=== PATIENT | male | born 1935 | race Asian ===

== ENCOUNTER 2017-05-14 11:21 | Inpatient (IN) | payer MEDICARE ==
[~2017-05-14] VITALS: Ht 160 cm; Wt 49.3 kg
[2017-05-14] MEDS ORDERED: Sodium Chloride 500ML 500 ML IV ONE (11:23)
[2017-05-14 11:31] VITALS: BP 133/82
[2017-05-14 12:01] LABS: HEMATOCRIT 38.2 % (42.0-52.0); HEMOGLOBIN 12.7 G/DL (14.2-18.0); MEAN CORPUSCULAR VOLUME 91 FL (80-99); PLATELET COUNT 181 K/UL (150-450); RED BLOOD COUNT 4.22 M/UL (4.70-6.10); RED CELL DISTRIBUTION WIDTH 13.1 % (11.6-14.8); WHITE BLOOD COUNT 8.1 K/UL (4.8-10.8)
[2017-05-14 12:21] LABS: ANION GAP 9 mmol/L (5-15); BLOOD UREA NITROGEN 19 mg/dL (7-18); CALCIUM 9.5 MG/DL (8.5-10.1); CARBON DIOXIDE 27 MMOL/L (21-32); CHLORIDE 102 MMOL/L (98-107); CREATININE 1.2 MG/DL (0.55-1.30); POTASSIUM 3.7 MMOL/L (3.5-5.1); SODIUM 138 MMOL/L (136-145)
[2017-05-14] MEDS ORDERED: Morphine Sulfate 4mg/ml Inj IVP ONE (12:30)
[2017-05-14 12:33] LABS: ALANINE AMINOTRANSFERASE 148 U/L (12-78); ALBUMIN 4.1 G/DL (3.4-5.0); ALKALINE PHOSPHATASE 219 U/L (46-116); ASPARTATE AMINO TRANSFERASE 359 U/L (15-37); BILIRUBIN,TOTAL 2.4 MG/DL (0.2-1.0); CKMB < 0.5 NG/ML (0.0-3.6); CREATINE KINASE 124 U/L (26-308)
[2017-05-14 12:42] VITALS: BP 123/48
[2017-05-14 12:44] LABS: BILIRUBIN,DIRECT 1.4 MG/DL (0.0-0.3)
[2017-05-14 13:35] LABS: APPEARANCE,URINE CLEAR; BILIRUBIN, URINE NEGATIVE (NEGATIVE); GLUCOSE, URINE (UA) 4+ (NEGATIVE); KETONES,URINE 2+ (NEGATIVE); LEUKOCYTE ESTERASE ,URINE NEGATIVE (NEGATIVE); NITRITE,URINE NEGATIVE (NEGATIVE); PH,URINE 8 (4.5-8.0); PROTEIN,URINE NEGATIVE (NEGATIVE); UROBILINOGEN,URINE 1 MG/DL (0.0-1.0)
[2017-05-14 13:36] LABS: COLOR,URINE YELLOW
[2017-05-14] MEDS ORDERED: METFORMIN HCL1000 M1 ORAL (13:54)
[2017-05-14] MEDS ORDERED: Zosyn 3.375gm inj ONE (13:56)
--- NOTE | 2017-05-14 13:56 | Diagnostic Imaging Report ---
Clinical Indication: Abdominal pain, nausea, vomiting, diarrhea Technique: No oral contrast utilized, per emergency room physician request IV administration nonionic contrast. Venous phase spiral acquisition obtained through the abdomen and pelvis. Multiplanar reconstructions were generated. Total dose length product 447.3 mGycm. CTDIvol(s) 8.93 mGy. Dose reduction achieved using automated exposure control Comparison: none Findings: The gallbladder is surgically absent. The common bile duct and common hepatic duct are markedly distended, measuring up to 2 cm in diameter. Within the common bile duct, there are multiple, at least 5, somewhat hyperattenuating structures measuring up to 11 mm diameter, consistent with common bile duct stones. There is also significant intrahepatic biliary ductal dilatation. No focal hepatic abnormality demonstrated. The pancreatic duct is somewhat ectatic. No definite pancreatic lesion demonstrated otherwise. The spleen, adrenals, kidneys are unremarkable. There is an accessory splenule. The prostate is enlarged. The bladder is mildly distended. No pelvic mass or adenopathy demonstrated. Lack of enteric contrast limits assessment of the GI tract. The appendix is not definitely visualized. No small bowel distention. No evidence of diverticulosis or diverticulitis. No free or loculated intraperitoneal air or fluid is evident. The distal esophagus, stomach are unremarkable. There is a small duodenal diverticulum The lung bases demonstrate posterior dependent atelectatic changes. The heart is moderately enlarged. The aorta and iliac vessels are heavily calcified. There are degenerative changes of the lumbar spine. Impression: Choledocholithiasis, with at least 5 common bile duct stones measuring up to 11 mm diameter. Resultant marked dilatation of the common bile duct, common hepatic duct, intrahepatic ducts Evidence of prior cholecystectomy. Limited assessment of the GI tract. Lack of enteric contrast Small duodenal diverticulum Posterior dependent pulmonary parenchymal atelectatic changes Cardiomegaly Extensive atherosclerotic changes Degenerative spondylosis The CT scanner at [facility] is accredited by the [employer] and the scans are performed using protocols designed to limit radiation exposure to as low as reasonably achievable to attain images of sufficient resolution adequate for diagnostic evaluation.
[2017-05-14] MEDS ORDERED: Piperacillin/Tazobactam 3.375 GM in NS 110 ML IVPB ONE (14:00)
[2017-05-14] MEDS ORDERED: Morphine Sulfate 4mg/ml Inj IVP PRN (14:30)
[2017-05-14] MEDS ORDERED: Morphine Sulfate 2mg/ml Inj IVP PRN (14:30)
[2017-05-14 15:00] VITALS: BP 115/59
--- NOTE | 2017-05-14 17:16 | General Progress Note ---
Assessment/Plan Assessment/Plan GI CONSULT full note to follow will arrange for ERCP Wednesday IVF follow labs / exam Thank you Julia Solano MD Subjective Allergies: Coded Allergies: No Known Allergies (Unverified , 05/14/17) Objective Last 24 Hour Vital Signs Date Time Temp Pulse Resp B/P (MAP) Pulse Ox O2 Delivery O2 Flow Rate FiO2 05/14/17 15:00 98.5 75 18 115/59 98 Room Air 05/14/17 14:36 97.3 79 18 123/48 98 Room Air 05/14/17 13:09 97.3 05/14/17 12:42 97.3 79 18 123/48 98 Room Air 05/14/17 11:31 97.3 81 20 133/82 98 Room Air 05/14/17 11:21 97.3 72 18 130/63 100 Room Air Laboratory Tests 05/14/17 11:40: White Blood Count 8.1, Red Blood Count 4.22L, Hemoglobin 12.7L, Hematocrit 38.2L , Mean Corpuscular Volume 91, Mean Corpuscular Hemoglobin 30.1, Mean Corpuscular Hemoglobin Concent 33.2, Red Cell Distribution Width 13.1, Platelet Count 181, Mean Platelet Volume 6.4L, Neutrophils (%) (Auto) , Lymphocytes (%) ( Auto) , Monocytes (%) (Auto) , Eosinophils (%) (Auto) , Basophils (%) (Auto) , Differential Total Cells Counted 100, Neutrophils % (Manual) 90H, Lymphocytes % (Manual) 8L, Monocytes % (Manual) 2, Eosinophils % (Manual) 0, Basophils % ( Manual) 0, Band Neutrophils 0, Platelet Estimate Adequate, Platelet Morphology Normal, Red Blood Cell Morphology Normal, Sodium Level 138, Potassium Level 3.7 , Chloride Level 102, Carbon Dioxide Level 27, Anion Gap 9, Blood Urea Nitrogen 19H, Creatinine 1.2, Estimat Glomerular Filtration Rate , Glucose Level 270H, Calcium Level 9.5, Total Bilirubin 2.4H, Direct Bilirubin 1.4H, Aspartate Amino Transf (AST/SGOT) 359H, Alanine Aminotransferase (ALT/SGPT) 148H, Alkaline Phosphatase 219H, Total Creatine Kinase 124, Creatine Kinase MB < 0.5, Creatine Kinase MB Relative Index 0.4, Troponin I 0.012, Total Protein 8.1, Albumin 4.1, Globulin 4.0, Albumin/Globulin Ratio 1.0, Lipase 212 05/14/17 12:59: Urine Color Yellow, Urine Appearance Clear, Urine pH 8, Urine Specific [place] 1.010, Urine Protein Negative, Urine Glucose (UA) 4+H, Urine Ketones 2+H, Urine Occult Blood Negative, Urine Nitrite Negative, Urine Bilirubin Negative, Urine Urobilinogen 1H, Urine Leukocyte Esterase Negative Height (Feet): 5 Height (Inches): 3.00 Weight (Pounds): 110 JULIA SOLANO May 14, 2017 17:16
[2017-05-14] MEDS: NovoLOG Insulin Flexpen SUBQ SCH ×2 (17:57→20:58)
[2017-05-14 20:33] VITALS: BP 115/58
[2017-05-14] MEDS: Heparin 5000 units/ml inj SUBQ SCH (20:57)
[2017-05-15 00:12] VITALS: BP 118/59
--- NOTE | 2017-05-15 02:45 | History and Physical Report ---
DATE OF ADMISSION: 05/14/2017 REASON FOR ADMISSION: Abdominal pain and choledocholithiasis. HISTORY OF PRESENT ILLNESS: The patient is an 81-year-old male who presents with abdominal pain, which has been ongoing associated with nausea and vomiting. The patient overall has been unable to keep anything down. The patient was seen and evaluated in the emergency room. The patient did undergo a CT of the pelvis showing significant amount of stones, but no clear obstruction or cholecystitis. The patient had evidence of bile duct stones as well and also dilation of the common bile duct. The patient had been admitted for pain control as well as gastrointestinal evaluation. The patient's care was discussed and reviewed. PAST MEDICAL HISTORY: Notable for diabetes. MEDICATIONS: Reviewed. ALLERGIES: Reviewed. SOCIAL HISTORY: Noted and reviewed. The patient does not smoke or drink. REVIEW OF SYSTEMS: Otherwise, negative with the exception of above. PHYSICAL EXAMINATION: GENERAL: A well-developed male. VITAL SIGNS: Blood pressure 123/78, pulse 79, respirations 18, saturation 100%, and temperature 97.3 degrees. HEENT: Fairly negative. NECK: Supple. Extraocular movements are intact. LUNGS: Otherwise clear. No rhonchi. No wheezes. CARDIAC: S1 and S2. Regular rate and rhythm without murmurs, rubs, or gallops. ABDOMEN: Tender in the right upper quadrant. No distention. EXTREMITIES: No cyanosis, clubbing, or edema. NEUROLOGIC: Grossly nonfocal. LABORATORY AND DIAGNOSTIC DATA: Lab data reviewed. White count 8.1, hemoglobin 12.7, hematocrit 38, and platelets of 181,000. Chemistries, notable for significantly elevated liver enzymes. Troponin is negative. IMPRESSION: 1. Common bile duct obstruction. 2. Gallstone-related hepatitis. 3. Diabetes. 4. Possible mild dehydration. RECOMMENDATION: NPO. IV hydration. Pain control. Antiemetics. GI evaluation, possible ERCP, possible surgical evaluation. We will follow clinically and recommend further. Huan Mason M.D. DR: PATIENCE JOB#: [id number] CC: NARAYAN
[2017-05-15 04:54] VITALS: BP 118/59
[2017-05-15] MEDS: NovoLOG Insulin Flexpen SUBQ SCH ×4 (06:18→21:38)
[2017-05-15 07:53] LABS: BASOPHILS % (AUTO) 0.5 % (0.0-2.0); EOSINOPHILS % (AUTO) 0.5 % (0.0-3.0); HEMATOCRIT 32.1 % (42.0-52.0); HEMOGLOBIN 10.8 G/DL (14.2-18.0); LYMPHOCYTES % (AUTO) 12.8 % (20.0-45.0); MEAN CORPUSCULAR VOLUME 90 FL (80-99); MONOCYTES % (AUTO) 6.2 % (1.0-10.0); PLATELET COUNT 149 K/UL (150-450); RED BLOOD COUNT 3.56 M/UL (4.70-6.10); RED CELL DISTRIBUTION WIDTH 13.1 % (11.6-14.8); WHITE BLOOD COUNT 8.2 K/UL (4.8-10.8)
[2017-05-15 08:00] VITALS: BP 122/59
[2017-05-15 08:08] LABS: ALANINE AMINOTRANSFERASE 241 U/L (12-78); ALBUMIN 2.9 G/DL (3.4-5.0); ALKALINE PHOSPHATASE 194 U/L (46-116); ANION GAP 6 mmol/L (5-15); ASPARTATE AMINO TRANSFERASE 252 U/L (15-37); BILIRUBIN,TOTAL 4.6 MG/DL (0.2-1.0); BLOOD UREA NITROGEN 13 mg/dL (7-18); CALCIUM 8.1 MG/DL (8.5-10.1); CARBON DIOXIDE 27 MMOL/L (21-32); CHLORIDE 107 MMOL/L (98-107); POTASSIUM 3.7 MMOL/L (3.5-5.1); SODIUM 140 MMOL/L (136-145)
[2017-05-15 08:11] LABS: BILIRUBIN,DIRECT 3.2 MG/DL (0.0-0.3)
[2017-05-15 08:12] LABS: INR 1.2 (0.9-1.1)
[2017-05-15] MEDS: Heparin 5000 units/ml inj SUBQ SCH ×2 (08:31→21:00)
--- NOTE | 2017-05-15 08:32 | General Progress Note ---
Assessment/Plan Assessment/Plan 1. Common bile duct obstruction. 2. Gallstone-related hepatitis. 3. Diabetes. 4. Possible mild dehydration. RECOMMENDATION: NPO. IV hydration. Pain control. Antiemetics. GI evaluation noted, ERCP, possible surgical evaluation. impression, plan, and exam edited and reviewed in detail care discussed with RN Subjective Allergies: Coded Allergies: No Known Allergies (Unverified , 05/14/17) Subjective overall same d/w gi and appreciated overnight events noted Objective Last 24 Hour Vital Signs Date Time Temp Pulse Resp B/P (MAP) Pulse Ox O2 Delivery O2 Flow Rate FiO2 05/15/17 04:54 Room Air 05/15/17 04:54 98.8 59 17 118/59 93 05/15/17 00:12 Room Air 05/15/17 00:12 99.0 59 17 118/59 93 05/14/17 20:33 99.2 61 18 115/58 93 05/14/17 20:33 Room Air 05/14/17 15:00 98.5 75 18 115/59 98 Room Air 05/14/17 14:36 97.3 79 18 123/48 98 Room Air 05/14/17 13:09 97.3 05/14/17 12:42 97.3 79 18 123/48 98 Room Air 05/14/17 11:31 97.3 81 20 133/82 98 Room Air 05/14/17 11:21 97.3 72 18 130/63 100 Room Air Intake and Output 05/14/17 05/15/17 19:00 07:00 Intake Total 750 ml 1000 ml Balance 750 ml 1000 ml Intake Oral 350 ml IV Total 400 ml 1000 ml # Voids 2 2 Laboratory Tests 05/14/17 11:40: White Blood Count 8.1, Red Blood Count 4.22L, Hemoglobin 12.7L, Hematocrit 38.2L , Mean Corpuscular Volume 91, Mean Corpuscular Hemoglobin 30.1, Mean Corpuscular Hemoglobin Concent 33.2, Red Cell Distribution Width 13.1, Platelet Count 181, Mean Platelet Volume 6.4L, Neutrophils (%) (Auto) , Lymphocytes (%) ( Auto) , Monocytes (%) (Auto) , Eosinophils (%) (Auto) , Basophils (%) (Auto) , Differential Total Cells Counted 100, Neutrophils % (Manual) 90H, Lymphocytes % (Manual) 8L, Monocytes % (Manual) 2, Eosinophils % (Manual) 0, Basophils % ( Manual) 0, Band Neutrophils 0, Platelet Estimate Adequate, Platelet Morphology Normal, Red Blood Cell Morphology Normal, Sodium Level 138, Potassium Level 3.7 , Chloride Level 102, Carbon Dioxide Level 27, Anion Gap 9, Blood Urea Nitrogen 19H, Creatinine 1.2, Estimat Glomerular Filtration Rate , Glucose Level 270H, Calcium Level 9.5, Total Bilirubin 2.4H, Direct Bilirubin 1.4H, Aspartate Amino Transf (AST/SGOT) 359H, Alanine Aminotransferase (ALT/SGPT) 148H, Alkaline Phosphatase 219H, Total Creatine Kinase 124, Creatine Kinase MB < 0.5, Creatine Kinase MB Relative Index 0.4, Troponin I 0.012, Total Protein 8.1, Albumin 4.1, Globulin 4.0, Albumin/Globulin Ratio 1.0, Lipase 212 05/14/17 12:59: Urine Color Yellow, Urine Appearance Clear, Urine pH 8, Urine Specific [place] 1.010, Urine Protein Negative, Urine Glucose (UA) 4+H, Urine Ketones 2+H, Urine Occult Blood Negative, Urine Nitrite Negative, Urine Bilirubin Negative, Urine Urobilinogen 1H, Urine Leukocyte Esterase Negative 05/15/17 06:50: White Blood Count 8.2, Red Blood Count 3.56L, Hemoglobin 10.8L, Hematocrit 32.1L , Mean Corpuscular Volume 90, Mean Corpuscular Hemoglobin 30.2, Mean Corpuscular Hemoglobin Concent 33.5, Red Cell Distribution Width 13.1, Platelet Count 149L, Mean Platelet Volume 7.2, Neutrophils (%) (Auto) 80.0H, Lymphocytes (%) (Auto) 12.8L, Monocytes (%) (Auto) 6.2, Eosinophils (%) (Auto) 0.5, Basophils (%) (Auto) 0.5, Sodium Level 140, Potassium Level 3.7, Chloride Level 107, Carbon Dioxide Level 27, Anion Gap 6, Blood Urea Nitrogen 13, Creatinine 1.0, Estimat Glomerular Filtration Rate , Glucose Level 91#, Calcium Level 8.1L , Total Bilirubin 4.6H, Direct Bilirubin 3.2H, Aspartate Amino Transf (AST/SGOT ) 252H, Alanine Aminotransferase (ALT/SGPT) 241H, Alkaline Phosphatase 194H, Total Protein 5.9L, Albumin 2.9L, Globulin 3.0, Albumin/Globulin Ratio 1.0, Prothrombin Time [Pending], Prothromb Time International Ratio [Pending] Height (Feet): 5 Height (Inches): 3.00 Weight (Pounds): 110 Objective WDWN NAD clear breath sounds bilaterally without rhonchi or wheeze [id number] without MRG NABS tender RUQ no CCE nonfocal alert skin noted SONI KO May 15, 2017 08:32
[2017-05-15 12:00] VITALS: BP 121/59
[2017-05-15 16:00] VITALS: BP 141/66
--- NOTE | 2017-05-15 17:25 | General Progress Note ---
Assessment/Plan Assessment/Plan Assessment - choledocholithiasis - Jaundice - no e/o cholangitis Recommendations - follow labs and exam - ERCP Wednesday - PO diet as tolerated Subjective Allergies: Coded Allergies: No Known Allergies (Unverified , 05/14/17) Subjective Feels well no abd pain for ERCP Wednesday Objective Last 24 Hour Vital Signs Date Time Temp Pulse Resp B/P (MAP) Pulse Ox O2 Delivery O2 Flow Rate FiO2 05/15/17 12:00 98.2 56 18 121/59 95 Room Air 05/15/17 08:00 98.5 55 20 122/59 96 Room Air 05/15/17 04:54 Room Air 05/15/17 04:54 98.8 59 17 118/59 93 05/15/17 00:12 Room Air 05/15/17 00:12 99.0 59 17 118/59 93 05/14/17 20:33 99.2 61 18 115/58 93 05/14/17 20:33 Room Air Intake and Output 05/14/17 05/15/17 19:00 07:00 Intake Total 750 ml 1000 ml Balance 750 ml 1000 ml Intake Oral 350 ml IV Total 400 ml 1000 ml # Voids 2 2 Laboratory Tests 05/15/17 06:50: White Blood Count 8.2, Red Blood Count 3.56L, Hemoglobin 10.8L, Hematocrit 32.1L , Mean Corpuscular Volume 90, Mean Corpuscular Hemoglobin 30.2, Mean Corpuscular Hemoglobin Concent 33.5, Red Cell Distribution Width 13.1, Platelet Count 149L, Mean Platelet Volume 7.2, Neutrophils (%) (Auto) 80.0H, Lymphocytes (%) (Auto) 12.8L, Monocytes (%) (Auto) 6.2, Eosinophils (%) (Auto) 0.5, Basophils (%) (Auto) 0.5, Prothrombin Time 12.7H, Prothromb Time International Ratio 1.2H, Sodium Level 140, Potassium Level 3.7, Chloride Level 107, Carbon Dioxide Level 27, Anion Gap 6, Blood Urea Nitrogen 13, Creatinine 1.0, Estimat Glomerular Filtration Rate , Glucose Level 91#, Calcium Level 8.1L, Total Bilirubin 4.6H, Direct Bilirubin 3.2H, Aspartate Amino Transf (AST/SGOT) 252H, Alanine Aminotransferase (ALT/SGPT) 241H, Alkaline Phosphatase 194H, Total Protein 5.9L, Albumin 2.9L, Globulin 3.0, Albumin/Globulin Ratio 1.0 Height (Feet): 5 Height (Inches): 3.00 Weight (Pounds): 110 Objective WDWN Man NCAT supple CTA RRR Soft NT ND no edema non focal MIRANDA LAURENT May 15, 2017 17:25
[2017-05-15 20:00] VITALS: BP 136/66
[2017-05-16] VITALS: BP 121/63
[2017-05-16 04:00] VITALS: BP 145/69
[2017-05-16] MEDS: NovoLOG Insulin Flexpen SUBQ SCH ×4 (06:30→21:24)
--- NOTE | 2017-05-16 07:18 | Emergency Room Report ---
History of Present Illness General Chief Complaint: Abdominal Pain Source: Patient, Family Member Present Illness HPI Patient presents with complaints of mid abdominal pain Patient is here with girlfriend who reports that she had done emergency acupuncture The pain became worse Patient points to the epigastric area for the pain mild radiation towards the back Rates the pain a 7/10 Patient has nausea Denies any diarrhea Denies any chest pain or shortness of breath denies any change of position Patient has had a previous cholecystectomy Allergies: Coded Allergies: No Known Allergies (Unverified , 05/14/17) Patient History Past Medical History: see triage record Pertinent Family History: none Reviewed Nursing Documentation: PMH: Agreed, PSxH: Agreed Nursing Documentation-PMH Past Medical History: No History, Except For Hx Cardiac Problems: Yes Hx Hypertension: Yes Hx Diabetes: Yes Hx Cancer: No Hx Gastrointestinal Problems: No Hx Neurological Problems: No Review of Systems All Other Systems: negative except mentioned in HPI Physical Exam Vital Signs Date Time Temp Pulse Resp B/P (MAP) Pulse Ox O2 Delivery O2 Flow Rate FiO2 05/14/17 11:21 97.3 72 18 130/63 100 Room Air Sp02 EP Interpretation: reviewed, normal General Appearance: mild distress - Appears uncomfortable Head: normocephalic, atraumatic Eyes: bilateral eye PERRL, bilateral eye EOMI ENT: hearing grossly normal, normal pharynx, TMs + canals normal, uvula midline Neck: full range of motion, supple, no meningismus, no bony tend Respiratory: lungs clear, normal breath sounds, no rhonchi, no respiratory distress, no retraction, no accessory muscle use Cardiovascular #1: normal peripheral pulses, regular rate, rhythm, no edema, no gallop, no JVD, no murmur Gastrointestinal: normal bowel sounds, soft, no mass, no organomegaly, non- distended, no guarding, no hernia, no pulsatile mass, no rebound, tenderness - Epigastric region Genitourinary: no CVA tenderness Musculoskeletal: normal inspection Neurologic: oriented x3, responsive, welder explosion III-XII nml as tested, motor strength/ tone normal, sensory intact Psychiatric: mood/affect normal Skin: normal color, no rash, warm/dry, palpation normal, other - Patient has of the lower mid abdominal surgical scar from the mid abdomen down below the umbilical region Lymphatic: normal inspection, no adenopathy Medical Decision Making Diagnostic Impression: Primary Impression: Choledocholithiasis ER Course With the history exam and presentation, multiple differentials considered, including but not limited to appendicitis, gastritis, cholecystitis, diverticulitis Given the patient's age vascular pathology is also entertained along with cardiac pathology Patient's imaging does reveal likely obstructive common bile stone Patient's pain is better with acute intervention lipase and liver function tests are also elevated GI consulted and patient requires admission Labs Test 05/14/17 11:40 05/14/17 12:59 05/15/17 06:50 White Blood Count 8.1 K/UL (4.8-10.8) 8.2 K/UL (4.8-10.8) Red Blood Count 4.22 M/UL (4.70-6.10) 3.56 M/UL (4.70-6.10) Hemoglobin 12.7 G/DL (14.2-18.0) 10.8 G/DL (14.2-18.0) Hematocrit 38.2 % (42.0-52.0) 32.1 % (42.0-52.0) Mean Corpuscular Volume 91 FL (80-99) 90 FL (80-99) Mean Corpuscular Hemoglobin 30.1 PG (27.0-31.0) 30.2 PG (27.0-31.0) Mean Corpuscular Hemoglobin Concent 33.2 G/DL (32.0-36.0) 33.5 G/DL (32.0-36.0) Red Cell Distribution Width 13.1 % (11.6-14.8) 13.1 % (11.6-14.8) Platelet Count 181 K/UL (150-450) 149 K/UL (150-450) Mean Platelet Volume 6.4 FL (6.5-10.1) 7.2 FL (6.5-10.1) Neutrophils (%) (Auto) % (45.0-75.0) 80.0 % (45.0-75.0) Lymphocytes (%) (Auto) % (20.0-45.0) 12.8 % (20.0-45.0) Monocytes (%) (Auto) % (1.0-10.0) 6.2 % (1.0-10.0) Eosinophils (%) (Auto) % (0.0-3.0) 0.5 % (0.0-3.0) Basophils (%) (Auto) % (0.0-2.0) 0.5 % (0.0-2.0) Differential Total Cells Counted 100 Neutrophils % (Manual) 90 % (45-75) Lymphocytes % (Manual) 8 % (20-45) Monocytes % (Manual) 2 % (1-10) Eosinophils % (Manual) 0 % (0-3) Basophils % (Manual) 0 % (0-2) Band Neutrophils 0 % (0-8) Platelet Estimate Adequate Platelet Morphology Normal Red Blood Cell Morphology Normal Sodium Level 138 MMOL/L (136-145) 140 MMOL/L (136-145) Potassium Level 3.7 MMOL/L (3.5-5.1) 3.7 MMOL/L (3.5-5.1) Chloride Level 102 MMOL/L (98-107) 107 MMOL/L (98-107) Carbon Dioxide Level 27 MMOL/L (21-32) 27 MMOL/L (21-32) Anion Gap 9 mmol/L (5-15) 6 mmol/L (5-15) Blood Urea Nitrogen 19 mg/dL (7-18) 13 mg/dL (7-18) Creatinine 1.2 MG/DL (0.55-1.30) 1.0 MG/DL (0.55-1.30) Estimat Glomerular Filtration Rate mL/min (>60) mL/min (>60) Glucose Level 270 MG/DL (74-106) 91 MG/DL (74-106) Calcium Level 9.5 MG/DL (8.5-10.1) 8.1 MG/DL (8.5-10.1) Total Bilirubin 2.4 MG/DL (0.2-1.0) 4.6 MG/DL (0.2-1.0) Direct Bilirubin 1.4 MG/DL (0.0-0.3) 3.2 MG/DL (0.0-0.3) Aspartate Amino Transf (AST/SGOT) 359 U/L (15-37) 252 U/L (15-37) Alanine Aminotransferase (ALT/SGPT) 148 U/L (12-78) 241 U/L (12-78) Alkaline Phosphatase 219 U/L (46-116) 194 U/L (46-116) Total Creatine Kinase 124 U/L (26-308) Creatine Kinase MB < 0.5 NG/ML (0.0-3.6) Creatine Kinase MB Relative Index 0.4 Troponin I 0.012 ng/mL (0.000-0.056) Total Protein 8.1 G/DL (6.4-8.2) 5.9 G/DL (6.4-8.2) Albumin 4.1 G/DL (3.4-5.0) 2.9 G/DL (3.4-5.0) Globulin 4.0 g/dL 3.0 g/dL Albumin/Globulin Ratio 1.0 (1.0-2.7) 1.0 (1.0-2.7) Lipase 212 U/L (73-393) Urine Color Yellow Urine Appearance Clear Urine pH 8 (4.5-8.0) Urine Specific [place] 1.010 (1.005-1.035) Urine Protein Negative (NEGATIVE) Urine Glucose (UA) 4+ (NEGATIVE) Urine Ketones 2+ (NEGATIVE) Urine Occult Blood Negative (NEGATIVE) Urine Nitrite Negative (NEGATIVE) Urine Bilirubin Negative (NEGATIVE) Urine Urobilinogen 1 MG/DL (0.0-1.0) Urine Leukocyte Esterase Negative (NEGATIVE) Prothrombin Time 12.7 SEC (9.30-11.50) Prothromb Time International Ratio 1.2 (0.9-1.1) Rhythm Strip Diag. Results EP Interpretation: yes Rate: 78 Rhythm: NSR, no PVC's, no ectopy CT/MRI/US Diagnostic Results CT/MRI/US Diagnostic Results : Impression CT abdomen pelvisImpression: Choledocholithiasis, with at least 5 common bile duct stones measuring up to 11 mm diameter. Resultant marked dilatation of the common bile duct, common hepatic duct, intrahepatic ducts Evidence of prior cholecystectomy. Limited assessment of the GI tract. Lack of enteric contrast Small duodenal diverticulum Posterior dependent pulmonary parenchymal atelectatic changes Cardiomegaly Extensive atherosclerotic changes Degenerative spondylosis Last Vital Signs Date Time Temp Pulse Resp B/P (MAP) Pulse Ox O2 Delivery O2 Flow Rate FiO2 05/16/17 04:00 97.8 70 18 145/69 98 Room Air Status: improved Disposition: ADMITTED INPATIENT Condition: Serious Referrals: NOT CHOSEN IPA/MD,REFERRING (PCP) PARAM HIGHTOWER D.O. May 16, 2017 07:18
[2017-05-16 08:00] VITALS: BP 142/72
--- NOTE | 2017-05-16 08:49 | General Progress Note ---
Assessment/Plan Assessment/Plan 1. Common bile duct obstruction. 2. Gallstone-related hepatitis. 3. Diabetes. 4. Possible mild dehydration. RECOMMENDATION: NPO. IV hydration. Pain control. Antiemetics. GI evaluation noted, ERCP in am, possible surgical evaluation. reviewed nursing care impression, plan, and exam edited and reviewed in detail care discussed with RN Subjective Allergies: Coded Allergies: No Known Allergies (Unverified , 05/14/17) Subjective overall same d/w gi and appreciated overnight events noted ERCP in am comfortable Objective Last 24 Hour Vital Signs Date Time Temp Pulse Resp B/P (MAP) Pulse Ox O2 Delivery O2 Flow Rate FiO2 05/16/17 04:00 97.8 70 18 145/69 98 Room Air 05/16/17 00:00 97.9 60 16 121/63 98 Room Air 05/15/17 20:00 98.3 57 18 136/66 95 Room Air 05/15/17 16:00 98.2 50 18 141/66 95 Room Air 05/15/17 12:00 98.2 56 18 121/59 95 Room Air Intake and Output 05/15/17 05/16/17 19:00 07:00 Intake Total 2220 ml 1120 ml Output Total 1050 ml Balance 2220 ml 70 ml Intake Oral 1120 ml 120 ml IV Total 1100 ml 1000 ml Output Urine Total 1050 ml # Voids 3 2 Height (Feet): 5 Height (Inches): 3.00 Weight (Pounds): 110 Objective WDWN NAD clear breath sounds bilaterally without rhonchi or wheeze [id number] without MRG NABS tender RUQ no CCE nonfocal alert skin noted SONI KO May 16, 2017 08:49
[2017-05-16] MEDS: Heparin 5000 units/ml inj SUBQ SCH ×2 (09:00→21:00)
[2017-05-16 12:00] VITALS: BP 143/70
--- NOTE | 2017-05-16 15:20 | Cardiology Report ---
APPROVED REPORT EKG Measurement Heart [id number] Normal sinus rhythm Incomplete left bundle branch block Left ventricular hypertrophy with repolarization abnormality Abnormal ECG
[2017-05-16 16:00] VITALS: BP 135/69
--- NOTE | 2017-05-16 19:10 | General Progress Note ---
Assessment/Plan Assessment/Plan Assessment - choledocholithiasis - Jaundice - no e/o cholangitis Recommendations - follow labs and exam - ERCP in am - PO diet as tolerated Subjective Allergies: Coded Allergies: No Known Allergies (Unverified , 05/14/17) Subjective Feels well no abd pain for ERCP in am Objective Last 24 Hour Vital Signs Date Time Temp Pulse Resp B/P (MAP) Pulse Ox O2 Delivery O2 Flow Rate FiO2 05/16/17 16:00 97.6 52 18 135/69 98 Room Air 05/16/17 12:00 98.0 56 18 143/70 96 Room Air 05/16/17 08:00 97.0 70 19 142/72 98 Room Air 05/16/17 04:00 97.8 70 18 145/69 98 Room Air 05/16/17 00:00 97.9 60 16 121/63 98 Room Air 05/15/17 20:00 98.3 57 18 136/66 95 Room Air Intake and Output 05/15/17 05/16/17 19:00 07:00 Intake Total 2220 ml 1120 ml Output Total 1050 ml Balance 2220 ml 70 ml Intake Oral 1120 ml 120 ml IV Total 1100 ml 1000 ml Output Urine Total 1050 ml # Voids 3 2 Height (Feet): 5 Height (Inches): 3.00 Weight (Pounds): 110 Objective WDWN Man NCAT supple CTA RRR Soft NT ND no edema non focal MIRANDA LAURENT May 16, 2017 19:09
[2017-05-16 20:00] VITALS: BP 151/68
[2017-05-17] VITALS (12 sets, daily range): BP systolic 116–170; BP diastolic 64–87
[2017-05-17] MEDS: NovoLOG Insulin Flexpen SUBQ SCH ×4 (06:30→21:00)
--- NOTE | 2017-05-17 08:01 | General Progress Note ---
Assessment/Plan Assessment/Plan 1. Common bile duct obstruction. 2. Gallstone-related hepatitis. 3. Diabetes. 4. Possible mild dehydration. RECOMMENDATION: NPO. IV hydration. Pain control. Antiemetics. GI evaluation noted, ERCP today, possible surgical evaluation pending results. reviewed nursing care; advance diet per gi impression, plan, and exam edited and reviewed in detail care discussed with RN Subjective Allergies: Coded Allergies: No Known Allergies (Unverified , 05/14/17) Subjective overall same d/w gi and appreciated overnight events noted ERCP today comfortable Objective Last 24 Hour Vital Signs Date Time Temp Pulse Resp B/P (MAP) Pulse Ox O2 Delivery O2 Flow Rate FiO2 05/17/17 04:00 98.0 54 19 147/75 97 05/16/17 20:00 97.8 96 16 151/68 96 Room Air 05/16/17 16:00 97.6 52 18 135/69 98 Room Air 05/16/17 12:00 98.0 56 18 143/70 96 Room Air Intake and Output 05/16/17 05/17/17 19:00 07:00 Intake Total 1700 ml 500 ml Output Total 2950 ml Balance -1250 ml 500 ml Intake Oral 500 ml IV Total 1200 ml 500 ml Output Urine Total 2950 ml # Voids 5 Height (Feet): 5 Height (Inches): 3.00 Weight (Pounds): 110 Objective WDWN NAD clear breath sounds bilaterally without rhonchi or wheeze [id number] without MRG NABS tender RUQ no CCE nonfocal alert skin noted SONI KO May 17, 2017 08:01
[2017-05-17] MEDS: Heparin 5000 units/ml inj SUBQ SCH ×2 (09:00→21:00)
--- NOTE | 2017-05-17 10:50 | Pre-Procedure Note/Attestation ---
Pre-Procedure Note/Attestation Complete Prior to Procedure Planned Procedure: not applicable Procedure Narrative: ercp Indications for Procedure Pre-Operative Diagnosis: choledocholithiasis Attestation I attest that I discussed the nature of the procedure; its benefits; risks and complications; and alternatives (and the risks and benefits of such alternatives ), prior to the procedure, with the patient (or the patient's legal artists' booking representative). I attest that, if there was a reasonable possibility of needing a blood transfusion, the patient (or the patient's legal artists' booking representative) was given the [facility] standardized written summary, pursuant to the [place]all Te[place] Blood Safety Act ([place] Health and Safety Code # 1645, as amended). I attest that I re-evaluated the patient just prior to the surgery and that there has been no change in the patient's H&P, except as documented below: REY STEEL May 17, 2017 10:50
[2017-05-17] MEDS ORDERED: Propofol 200mg/20ml IV ONE (11:00)
[2017-05-17] MEDS ORDERED: LR 1000ml ONE (11:00)
[2017-05-17] MEDS ORDERED: Lidocaine 1% MPF 10mg/ml 5ml ONE (11:00)
[2017-05-17] MEDS ORDERED: Midazolam 2mg/2ml Inj ONE (11:00)
[2017-05-17] MEDS ORDERED: Iothalamate Meglumine 60% 30ML INJ ONE ×2 (11:29→11:46)
[2017-05-17] MEDS ORDERED: Indomethacin 50mg Supp RECTAL ONE (11:30)
[2017-05-17] MEDS ORDERED: Tubing IV Extension IV ONE (11:30)
[2017-05-17] MEDS ORDERED: NS 500ML IV ONE (11:30)
[2017-05-17] MEDS ORDERED: LR 1000ml 1,000 ML IVLG SCH (11:43)
[2017-05-17] MEDS ORDERED: fentaNYL 100 mcg/2 mL IV PRN (11:45)
[2017-05-17] MEDS ORDERED: oxyCODONE HCL/Acetaminophen 5/325mg ORAL PRN (11:45)
[2017-05-17] MEDS ORDERED: Midazolam 2mg/2ml Inj IVP PRN (11:45)
[2017-05-17] MEDS ORDERED: DiphenhydrAMINE 50mg/ml Inj IVP PRN (11:45)
[2017-05-17] MEDS ORDERED: LORazepam Inj 2mg/ml 1ml IV PRN (11:45)
[2017-05-17] MEDS ORDERED: HYDROcodone/Acetamin 7.5/325 tab ORAL PRN (11:45)
[2017-05-17] MEDS ORDERED: Atropine Inj 1mg/10ml Syr IV PRN (11:45)
[2017-05-17] MEDS ORDERED: Norco 5mg/325mg tab ORAL PRN (11:45)
[2017-05-17] MEDS ORDERED: Labetalol 5mg/ml 20ml vial IV PRN (11:45)
[2017-05-17] MEDS ORDERED: Hydromorphone 0.5mg/0.5ml inj IVP PRN (11:45)
--- NOTE | 2017-05-17 12:00 | Anethesia Preoperative Eval ---
Anesthesia Pre-op PMH/ROS General Date of Evaluation: May 17, 2017 Time of Evaluation: 11:18 Anesthesiologist: Kate ASA Score: ASA 3 Mallampati Score Class I : Soft palate, uvula, fauces, pillars visible Class II: Soft palate, uvula, fauces visible Class III: Soft palate, base of uvula visible Class IV: Only hard plate visible Mallampati Classification: Class II Surgeon: Jessica Diagnosis: Abd Pain Surgical Procedure: ERCP Anesthesia History: none Family History: no anesthesia problems Allergies: Coded Allergies: No Known Allergies (Unverified , 05/14/17) Medications: see eMAR Past Medical History Cardiovascular: Reports: HTN Gastrointestinal/Genitourinary: Reports: GERD Endocrine: Reports: DM PSxH Narrative: Cholecystectomy Anesthesia Pre-op Phys. Exam Physician Exam Last Vital Signs Date Time Temp Pulse Resp B/P (MAP) Pulse Ox O2 Delivery O2 Flow Rate FiO2 05/17/17 04:00 98.0 54 19 147/75 97 05/16/17 20:00 Room Air Constitutional: NAD Neurologic: CN 2-12 intact Cardiovascular: RRR Respiratory: CTA Gastrointestinal: S/NT/ND Airway Exam Mallampati Score: Class II MO: full ROM: full Teeth: missing, intact Anesthesia Pre-op A/P Risk Assessment & Plan Assessment: ASA 3 Plan: GA Status Change Before Surgery: Jose Portillo MD May 17, 2017 12:00
--- NOTE | 2017-05-17 12:01 | Immediate Post-Op Evaluation ---
Immediate Post-Op Evalulation Immediate Post-Op Evalulation Procedure: ERCP Date of Evaluation: May 17, 2017 Time of Evaluation: 13:28 IV Fluids: 1000 NS Blood Products: 0 Estimated Blood Loss: 3 Urinary Output: 0 Blood Pressure Systolic: 139 Blood Pressure Diastolic: 77 Pulse Rate: 81 Respiratory Rate: 16 O2 Sat by Pulse Oximetry: 98 Temperature (Fahrenheit): 97.8 Pain Score (1-10): 2 Nausea: No Vomiting: No Complications 0 Patient Status: awake, reacts, patent, none Hydration Status: adequate Jose Love MD May 17, 2017 12:01
--- NOTE | 2017-05-17 12:02 | 48 Hour Post Anesthesia Eval ---
Post Anesthesia Evaluation Procedure: ERCP Date of Evaluation: May 17, 2017 Time of Evaluation: 15:34 Blood Pressure Systolic: 162 0: 98 Pulse Rate: 78 Respiratory Rate: 18 Temperature (Fahrenheit): 98.4 O2 Sat by Pulse Oximetry: 98 Airway: patent Nausea: No Vomiting: No Pain Intensity: 2 Hydration Status: adequate Cardiopulmonary Status: Stable Mental Status/LOC: patient returned to baseline Follow-up Care/Observations: 0 Post-Anesthesia Complications: 0 Follow-up care needed: N/A Jose Love MD May 17, 2017 12:02
--- NOTE | 2017-05-17 14:36 | Diagnostic Imaging Report ---
Indication: Abdominal pain. ERCP. Findings: Fluoroscopically captured images of the right upper quadrant of the abdomen demonstrate an endoscope with cannulation of the common bile duct and injection of contrast material. CBD and intrahepatic ducts are prominent. Catheter and wire manipulation of multiple views subsequent stent placement noted. Cholecystectomy noted. Impression: ERCP as above
[2017-05-17] MEDS ORDERED: Cefepime HCl 1 GM in NS 55 ML IVPB SCH (16:00)
--- NOTE | 2017-05-17 16:07 | Consultation ---
History of Present Illness General Date patient seen: May 17, 2017 Chief Complaint: Abdominal Pain Reason for Consultation: s/p ERCP with crepitus Present Illness HPI 81 year old male recently presented with persistent abdominal pain, nausea, and emesis. During work up found to have choledocholithiasis. ERCP performed today and multiple stones extracted from CBD. Procedure uneventful. Post procedure, patient was noted to have crepitus around chest, neck, and flank. CT scan performed and identified significant retroperitoneal air. Surgery called to evaluate. when seen patient stable and comfortable. Allergies: Coded Allergies: No Known Allergies (Unverified , 05/14/17) Medication History Scheduled Metformin Hcl* (Metformin Hcl*), 1,000 MG ORAL BID, (Reported) Patient History Limited by: other - recent procedure anesthesia History Provided By: Medical Record, PMD Healthcare decision maker N Resuscitation status Full Code Advanced Directive on File Past Medical/Surgical History Past Medical/Surgical History: (1) Abdominal pain (2) Elevated LFTs (3) Choledocholithiasis Review of Systems Constitutional: Denies: no symptoms, see HPI, chills, sweats, fever, malaise, weakness, other Eye: Denies: no symptoms, see HPI, eye pain, blurred vision, tearing, double vision, nose pain, nose congestion, acuity changes, discharge, other ENT: Denies: no symptoms, see HPI, ear pain, ear discharge, nose pain, nose congestion, throat pain, throat swelling, mouth pain, hearing loss, nasal discharge, other Respiratory: Denies: no symptoms, see HPI, cough, orthopnea, shortness of breath, stridor, wheezing, SHANKAR, sputum, other Cardiovascular: Denies: no symptoms, see HPI, chest pain, edema, palpitations, syncope, PND, other Gastrointestinal: Denies: no symptoms, see HPI, abdominal pain, constipation, diarrhea, nausea, vomiting, melena, hematemesis, other Genitourinary: Denies: no symptoms, see HPI, discharge, dysuria, frequency, hematuria, pain, retention, incontinence, urgency, vag bleed/dc, other Musculoskeletal: Denies: no symptoms, see HPI, back pain, gout, joint pain, joint swelling, muscle pain, muscle stiffness, other Skin: Denies: no symptoms, see HPI, rash, change in color, change in hair/nails , dryness, lesions, other Psychiatric: Denies: no symptoms, see HPI, prior hx, anxiety, depressed feelings, emotional problems, SI, HI, hallucinations, other Neurological: Denies: no symptoms, see HPI, headache, numbness, paresthesia, seizure, tingling, tremors, focal weakness, syncope, dizziness, other Endocrine: Denies: no symptoms, see HPI, excessive sweating, flushing, intolerance to temperature, increased thirst, increased urine, unexplained weight loss, other Hematologic/Lymphatic: Denies: no symptoms, see HPI, anemia, blood clots, easy bleeding, easy bruising, swollen glands, diathesis, other All Other Systems: negative except mentioned in HPI ROS Narrative difficult to obtain in full given patient still with some anesthetic s/p procedure Physical Exam General Appearance: no apparent distress Lines, tubes and drains: peripheral HEENT: mucous membranes moist, PERRL Neck: supple, other - crepitus Respiratory/Chest: lungs clear, normal breath sounds, no respiratory distress, no accessory muscle use, other - crepitus Cardiovascular/Chest: normal peripheral pulses, normal rate Abdomen: normal bowel sounds, non tender, soft, no organomegaly, no mass Extremities: non-tender, normal inspection, no calf tenderness Skin Exam: warm/dry Neurologic: alert, responsive Last 24 Hour Vital Signs Date Time Temp Pulse Resp B/P (MAP) Pulse Ox O2 Delivery O2 Flow Rate FiO2 05/17/17 14:27 97.9 05/17/17 13:40 97.9 73 20 159/87 96 Nasal Cannula 3.0 05/17/17 13:27 75 15 166/83 96 Simple Mask 6.0 05/17/17 13:22 76 22 159/84 96 Simple Mask 6.0 05/17/17 13:17 97.8 82 21 139/77 96 Simple Mask 6.0 05/17/17 13:15 209.1 78 18 98 05/17/17 13:14 208.0 81 16 98 05/17/17 04:00 98.0 54 19 147/75 97 05/16/17 20:00 97.8 96 16 151/68 96 Room Air 05/16/17 16:00 97.6 52 18 135/69 98 Room Air Intake and Output 05/16/17 05/17/17 19:00 07:00 Intake Total 1700 ml 500 ml Output Total 2950 ml Balance -1250 ml 500 ml Intake Oral 500 ml IV Total 1200 ml 500 ml Output Urine Total 2950 ml # Voids 5 Height (Feet): 5 Height (Inches): 3.00 Weight (Pounds): 110 Medications Current Medications Medications (Trade) Dose Ordered Sig/Dwayne Route PRN Reason Start Time Stop Time Status Last Admin Dose Admin Acetaminophen (Tylenol) 650 mg Q4H PRN ORAL Mild Pain/Temp > 100.5 05/14/17 17:00 06/13/17 16:59 Acetaminophen/ Hydrocodone Bitart ([place] 5/325) 1 tab Q1H PRN ORAL Mild Pain (Pain Scale 1-3) 05/17/17 11:45 05/17/17 19:00 Acetaminophen/ Hydrocodone Bitart ([place] 7.5/325) 1 tab Q1H PRN ORAL Moderate Pain (Pain Scale 4-6) 05/17/17 11:45 05/17/17 19:00 Al Hydroxide/Mg Hydroxide (Mylanta) 15 ml Q1H PRN ORAL gi upset 05/17/17 11:45 05/17/17 19:00 Atropine Sulfate (Atropine) 0.5 mg Q5M PRN IV HR <40 BPM 05/17/17 11:45 05/17/17 19:00 Cefepime HCl 1 gm/ Sodium Chloride 55 ml @ 110 mls/hr DAILY@1600 IVPB 05/17/17 16:00 05/24/17 15:59 Dextrose (Dextrose 50%) STAT PRN IV Hypoglycemia 05/14/17 14:30 06/13/17 14:29 Diphenhydramine HCl (Benadryl) 25 mg Q15M PRN IVP Itching 05/17/17 11:45 05/17/17 19:00 Fentanyl Citrate (Sublimaze 100 mcg/2 mL) 25 mcg Q10M PRN IV Moderate Pain (Pain Scale 4-6) 05/17/17 11:45 05/17/17 19:00 Heparin Sodium (Porcine) (Heparin 5000 units/ml) 5,000 units EVERY 12 HOURS SUBQ 05/14/17 21:00 06/13/17 20:59 05/14/17 20:57 Hydralazine HCl (Apresoline) 5 mg Q30M PRN IV SBP>160 / DBP>90 2/12/18 11:45 05/17/17 19:00 Hydromorphone HCl (Dilaudid) 0.5 mg Q15M PRN IVP Severe Pain (Pain Scale 7-10) 05/17/17 11:45 05/17/17 19:00 Insulin Aspart (NovoLOG) BEFORE MEALS AND HS SUBQ 05/14/17 16:30 06/13/17 16:29 05/16/17 21:24 Labetalol HCl (Normodyne) 5 mg Q10M PRN IV SBP>160 / DBP>90 05/17/17 11:45 05/17/17 19:00 Lactated Ringer's 1,000 ml @ 10 mls/hr Q24H IVLG 05/17/17 11:43 05/17/17 19:00 Lorazepam (Ativan 2mg/ml 1ml) 1 mg Q15M PRN IV For Anxiety 05/17/17 11:45 05/17/17 19:00 Metronidazole 100 ml @ 100 mls/hr Q8HR IVPB 05/17/17 15:00 05/24/17 14:59 05/17/17 14:28 Midazolam HCl (Versed 2mg/2ml vial) 1 mg Q15M PRN IVP For Anxiety 05/17/17 11:45 05/17/17 19:00 Morphine Sulfate (Morphine Sulfate) 2 mg Q3H PRN IVP Moderate Pain (Pain Scale 4-6) 05/14/17 14:30 05/21/17 14:29 05/17/17 14:27 Morphine Sulfate (Morphine Sulfate) 4 mg Q3H PRN IVP Severe Pain (Pain Scale 7-10) 05/14/17 14:30 05/21/17 14:29 Ondansetron HCl (Zofran) 4 mg Q1H PRN IVP Nausea & Vomiting 05/17/17 11:45 05/17/17 19:00 Ondansetron HCl (Zofran) 4 mg Q6H PRN IVP Nausea & Vomiting 05/14/17 14:30 06/13/17 14:29 Oxycodone/ Acetaminophen (Percocet 5-325) 1 tab Q1H PRN ORAL Severe Pain (Pain Scale 7-10) 05/17/17 11:45 05/17/17 19:00 Sodium Chloride 1,000 ml @ 100 mls/hr Q10H IVLG 05/14/17 15:30 06/13/17 15:29 05/17/17 14:28 Assessment/Plan Problem List: (1) Choledocholithiasis Assessment & Plan: 81M s/p uneventful ERCP for choledocholithiasis was noted to have crepitus post procedure. CT demonstrated retroperitoneal air and similar findings to clinical exam. No noted injury during procedure which was otherwise uneventful. Although many possible differential diagnosis most likely is small retroperitoneal perforation during procedure. No definitive site of injury could be seen on CT when I reviewed it. No significant esophageal injury could be noted on CT. Given above findings would recommend medical management for now. NPO, IV fluids, IV Abx. If clinically deteriorates will consider endoscopy to see if site of injury can be identified and clipped. May requires surgery as well but fortunately if not too severe these will heal themselves without sequela. will follow with recs. thank you for this consultation. ICD Codes: K80.50 - Calculus of bile duct without cholangitis or cholecystitis without obstruction SNOMED: [id number] Status: stable Gigi Crowder May 17, 2017 16:07
--- NOTE | 2017-05-17 16:29 | Diagnostic Imaging Report ---
Indication: Chest pain postop ERCP. Suspected perforation Technique: Continuous helical transaxial imaging of the chest was obtained from the thoracic inlet to the upper abdomen after intravenous nonionic contrast administration. Coronal 2-D reformats were also obtained. Automatic Exposure Control was utilized. Total Dose length Product (DLP): 1005.[address] Dose Index Volume (CTDIvol): 9.65,9.55 mGy Comparison: none Findings: There is extensive amount of pneumomediastinum contiguous with extensive amount of retroperitoneal air. A small right pneumothorax is also present as well as subcutaneous air in the chest wall. Small bilateral pleural effusions and posterior basilar atelectasis noted. There is a biliary stent. Pneumobilia association with this noted. Aorta is moderately calcified. It is not possible to elucidate the precise location of the perforation within the enteric tract. There is air both surrounding the esophagus as well as extensive retroperitoneal air surrounding the retroperitoneal portion of the duodenum. No evidence of bowel obstruction. Moderate stool in the colon noted. Urinary bladder is unremarkable. There is no hydronephrosis. Lungs are notable for areas of hyperlucency consistent emphysema especially in the upper lobes. The heart is enlarged. IMPRESSION: Extensive retroperitoneal air and pneumomediastinum consistent with enteric perforation. The precise location of the perforation is unknown. CBD stent noted. Pneumobilia noted. Small right pneumothorax. Pulmonary emphysema. Mild posterior basilar atelectasis and small pleural effusions. Atherosclerotic vascular disease. The CT scanner at [facility] is accredited by the [place] [employer] and the scans are performed using dose optimization techniques as appropriate to a performed exam including Automatic Exposure control.
[2017-05-17] MEDS: Morphine Sulfate 2mg/ml Inj IVP PRN (22:20)
--- NOTE | 2017-05-17 22:54 | General Progress Note ---
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 with retroperitoneal free air Recommendations - follow labs and exam closely - agree with trial of non-operative management - NPO - NGT --> LIS - IVF - Broad spectrum antibiotics Subjective Allergies: Coded Allergies: No Known Allergies (Unverified , 05/14/17) Subjective Above noted patient seen early am today, prior to ERCP felt well, no new symptoms at time of visit subsequent events noted and discussed with Dr Lopez patient with post procedure crepitus, suspected due to duodenal ampullary injury site transferred to ICU for close observation and post procedure care Objective Last 24 Hour Vital Signs Date Time Temp Pulse Resp B/P (MAP) Pulse Ox O2 Delivery O2 Flow Rate FiO2 05/17/17 20:00 99.8 83 19 146/72 95 Room Air 05/17/17 16:00 97.0 82 20 170/82 96 Room Air 05/17/17 14:55 97.0 05/17/17 14:27 97.9 05/17/17 14:00 97.8 87 20 163/85 96 Room Air 05/17/17 13:40 97.9 73 20 159/87 96 Nasal Cannula 3.0 05/17/17 13:27 75 15 166/83 96 Simple Mask 6.0 05/17/17 13:22 76 22 159/84 96 Simple Mask 6.0 05/17/17 13:17 97.8 82 21 139/77 96 Simple Mask 6.0 05/17/17 13:15 209.1 78 18 98 05/17/17 13:14 208.0 81 16 98 05/17/17 08:00 97.1 81 20 116/65 96 Room Air 05/17/17 04:00 98.0 54 19 147/75 97 Intake and Output 05/16/17 05/17/17 19:00 07:00 Intake Total 1700 ml 500 ml Output Total 2950 ml Balance -1250 ml 500 ml Intake Oral 500 ml IV Total 1200 ml 500 ml Output Urine Total 2950 ml # Voids 5 Height (Feet): 5 Height (Inches): 3.00 Weight (Pounds): 110 Objective Pre procedure am exam WDWN Man NCAT supple CTA RRR Soft NT ND no edema non focal MIRANDA LAURENT May 17, 2017 22:54
[2017-05-17] MEDS ORDERED: Morphine Sulfate 4mg/ml Inj IVP PRN (23:30)
[2017-05-18] VITALS (24 sets, daily range): BP systolic 133–169; BP diastolic 60–74
--- NOTE | 2017-05-18 01:15 | Procedure Note ---
DATE OF PROCEDURE: 05/17/2017 SURGEON: Matthias Lopez M.D. PROCEDURE: ERCP with sphincterotomy, lithotripsy, balloon-assisted stone extraction, and stent placement. REFERRING PHYSICIAN: Julia Solano M.D. ANESTHESIA: Per Dr. Love. INSTRUMENT: Olympus ERCP scope. INDICATION: Choledocholithiasis. The procedure, risks, benefits, and possible consequences, including hemorrhage, aspiration, perforation and infection, and alternative treatments, were explained to the patient/legal guardian by Dr. Matthias Lopez and the patient/legal guardian understood and accepted these risks. DESCRIPTION OF PROCEDURE: After informed consent was obtained and the patient was adequately sedated, the ERCP scope was advanced from mouth into the second portion of the duodenum. Using a sphincterotome, common bile duct was selectively cannulated. Initial cholangiogram showed evidence of severely dilated common bile duct with multiple stones in the distal common bile duct. Common bile duct was measured at least about 1.7 to 1.8 cm in size. Then, the stones, one of them at least was 1.5 cm. Then, over a guidewire, using a sphincterotome, 95% sphincterotomy was performed. Then, we tried to remove the stone with a regular balloon, the 15 mm balloon, but the stones were too big to pass through the common bile duct. At this time, we decided to use lithotripsy. We used a basket with 2 large stones. After that we used a regular balloon to sweep the duct multiple times and to remove the debris of the lithotripsy. We actually washed the common bile duct with 30 mL of water successfully with removal of all this debris, which in the common bile duct. Post stone removal, stones, there was no further filling defect or problem is seen. Then, given this was a long procedure and given there was a lot of debris coming out from the common bile duct, we decided to put a stent. A 10-[place] 5 cm stent was successfully placed in the common bile duct. The patient did tolerate the procedure very well, but in the recovery room, it was felt that the patient has crepitus in the neck area suspicious for perforation in the esophagus versus in the duodenum versus periampullary. So, we decided to order a stat CT of which results are pending. SUMMARY OF FINDINGS: 1. Status post ERCP with sphincterotomy, lithotripsy, balloon-assisted stone extraction, and stent placement. 2. Possible perforation in the esophagus versus duodenal bulb versus periampullary. We have ordered a stat CT. The patient to be started on antibiotics cefepime and Flagyl. We will follow. I want to thank Dr. Solano for this kind referral. Matthias Lopez M.D. DR: STEFANIE JOB#: [id number] CC: Julia Solano M.D.; Fax#: [phone]
[2017-05-18 05:28] LABS: HEMATOCRIT 38.3 % (42.0-52.0); MEAN CORPUSCULAR VOLUME 89 FL (80-99); PLATELET COUNT 206 K/UL (150-450); RED CELL DISTRIBUTION WIDTH 13.1 % (11.6-14.8); WHITE BLOOD COUNT 13.1 K/UL (4.8-10.8)
[2017-05-18 05:43] LABS: ALANINE AMINOTRANSFERASE 91 U/L (12-78); ALBUMIN/GLOBULIN RATIO 0.8 (1.0-2.7); ALKALINE PHOSPHATASE 221 U/L (46-116); ANION GAP 13 mmol/L (5-15); ASPARTATE AMINO TRANSFERASE 26 U/L (15-37); BILIRUBIN,TOTAL 2.2 MG/DL (0.2-1.0); BLOOD UREA NITROGEN 8 mg/dL (7-18); CALCIUM 8.4 MG/DL (8.5-10.1); CARBON DIOXIDE 21 MMOL/L (21-32); CHLORIDE 104 MMOL/L (98-107); CREATININE 0.8 MG/DL (0.55-1.30); POTASSIUM 3.1 MMOL/L (3.5-5.1); SODIUM 138 MMOL/L (136-145)
[2017-05-18 05:52] LABS: INR 1.1 (0.9-1.1)
[2017-05-18 05:57] LABS: BILIRUBIN,DIRECT 0.8 MG/DL (0.0-0.3)
[2017-05-18] MEDS: NovoLOG Insulin Flexpen SUBQ SCH ×4 (05:59→20:37)
[2017-05-18] MEDS: Heparin 5000 units/ml inj SUBQ SCH ×2 (09:12→20:36)
[2017-05-18] MEDS ORDERED: Tubing IV Secondary IV ONE (11:23)
--- NOTE | 2017-05-18 13:11 | General Progress Note ---
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 with retroperitoneal free air Recommendations - follow labs and exam closely - agree with trial of non-operative management - NPO - NGT --> LIS - can d/c if no output - IVF - Broad spectrum antibiotics Subjective Allergies: Coded Allergies: No Known Allergies (Unverified , 05/14/17) Subjective Above noted seen in ICU hungry NGT output minimal to none Objective Last 24 Hour Vital Signs Date Time Temp Pulse Resp B/P (MAP) Pulse Ox O2 Delivery O2 Flow Rate FiO2 05/18/17 12:00 98.8 77 22 155/64 94 Room Air 05/18/17 11:00 76 21 158/65 95 Room Air 05/18/17 10:00 76 20 161/66 95 Room Air 05/18/17 09:14 75 156/63 05/18/17 09:00 74 19 156/63 94 Room Air 05/18/17 08:00 98.9 76 21 169/71 95 Room Air 05/18/17 07:00 79 19 166/73 94 Room Air 05/18/17 06:00 78 18 162/73 95 Room Air 05/18/17 05:01 163/72 05/18/17 05:00 79 22 164/74 94 Room Air 05/18/17 04:00 98.7 81 20 163/72 95 Room Air 05/18/17 03:00 79 21 160/71 95 Room Air 05/18/17 02:00 78 22 160/67 95 Room Air 05/18/17 01:00 78 20 151/65 93 Room Air 05/18/17 00:00 98.9 84 23 151/67 93 Room Air 05/17/17 23:00 87 23 154/64 93 Room Air 05/17/17 22:00 81 22 160/67 93 Room Air 05/17/17 21:30 98.7 84 23 160/67 95 Room Air 05/17/17 20:00 99.8 83 19 146/72 95 Room Air 05/17/17 16:00 97.0 82 20 170/82 96 Room Air 05/17/17 14:55 97.0 05/17/17 14:27 97.9 05/17/17 14:00 97.8 87 20 163/85 96 Room Air 05/17/17 13:40 97.9 73 20 159/87 96 Nasal Cannula 3.0 05/17/17 13:27 75 15 166/83 96 Simple Mask 6.0 05/17/17 13:22 76 22 159/84 96 Simple Mask 6.0 05/17/17 13:17 97.8 82 21 139/77 96 Simple Mask 6.0 05/17/17 13:15 209.1 78 18 98 05/17/17 13:14 208.0 81 16 98 Intake and Output 05/17/17 05/18/17 19:00 07:00 Intake Total 2200 ml 800 ml Output Total 253 ml 680 ml Balance 1947 ml 120 ml IV Total 2200 ml 800 ml Output Urine Total 250 ml 680 ml Estimated Blood Loss 3 ml # Voids 1 Laboratory Tests 05/18/17 04:10: White Blood Count 13.1H, Red Blood Count 4.30L, Hemoglobin 13.0L, Hematocrit 38.3L, Mean Corpuscular Volume 89, Mean Corpuscular Hemoglobin 30.3, Mean Corpuscular Hemoglobin Concent 34.1, Red Cell Distribution Width 13.1, Platelet Count 206, Mean Platelet Volume 7.3, Neutrophils (%) (Auto) , Lymphocytes (%) ( Auto) , Monocytes (%) (Auto) , Eosinophils (%) (Auto) , Basophils (%) (Auto) , Prothrombin Time 11.4, Prothromb Time International Ratio 1.1, Sodium Level 138 , Potassium Level 3.1L, Chloride Level 104, Carbon Dioxide Level 21, Anion Gap 13, Blood Urea Nitrogen 8, Creatinine 0.8, Estimat Glomerular Filtration Rate , Glucose Level 146H, Calcium Level 8.4L, Magnesium Level 1.3L, Total Bilirubin 2.2H, Direct Bilirubin 0.8H, Aspartate Amino Transf (AST/SGOT) 26, Alanine Aminotransferase (ALT/SGPT) 91H, Alkaline Phosphatase 221H, Total Protein 6.6, Albumin 3.0L, Globulin 3.6, Albumin/Globulin Ratio 0.8L Height (Feet): 5 Height (Inches): 3.00 Weight (Pounds): 106 Objective WDWN Man NCAT supple, minimal crepitus at base of neck CTA RRR Soft NT ND no edema non focal MIRANDA LAURENT May 18, 2017 13:11
--- NOTE | 2017-05-18 13:14 | General Progress Note ---
Assessment/Plan Assessment/Plan 1. Common bile duct obstruction. 2. Gallstone-related hepatitis. 3. Diabetes. 4. Possible mild dehydration. 5. s/p perforation 6. subcutan air 7. small pneumothorax RECOMMENDATION: NPO. IV hydration. Pain control. Antiemetics. GI and GS evaluation noted, CT noted reviewed nursing care; monitor in ICU overnight hopefully medical management will be sufficient impression, plan, and exam edited and reviewed in detail care discussed with RN Subjective Allergies: Coded Allergies: No Known Allergies (Unverified , 05/14/17) Subjective care noted transferred to ICU gs appreciated d/w gi and appreciated probable perforation Objective Last 24 Hour Vital Signs Date Time Temp Pulse Resp B/P (MAP) Pulse Ox O2 Delivery O2 Flow Rate FiO2 05/18/17 12:00 98.8 77 22 155/64 94 Room Air 05/18/17 11:00 76 21 158/65 95 Room Air 05/18/17 10:00 76 20 161/66 95 Room Air 05/18/17 09:14 75 156/63 05/18/17 09:00 74 19 156/63 94 Room Air 05/18/17 08:00 98.9 76 21 169/71 95 Room Air 05/18/17 07:00 79 19 166/73 94 Room Air 05/18/17 06:00 78 18 162/73 95 Room Air 05/18/17 05:01 163/72 05/18/17 05:00 79 22 164/74 94 Room Air 05/18/17 04:00 98.7 81 20 163/72 95 Room Air 05/18/17 03:00 79 21 160/71 95 Room Air 05/18/17 02:00 78 22 160/67 95 Room Air 05/18/17 01:00 78 20 151/65 93 Room Air 05/18/17 00:00 98.9 84 23 151/67 93 Room Air 05/17/17 23:00 87 23 154/64 93 Room Air 05/17/17 22:00 81 22 160/67 93 Room Air 05/17/17 21:30 98.7 84 23 160/67 95 Room Air 05/17/17 20:00 99.8 83 19 146/72 95 Room Air 05/17/17 16:00 97.0 82 20 170/82 96 Room Air 05/17/17 14:55 97.0 05/17/17 14:27 97.9 05/17/17 14:00 97.8 87 20 163/85 96 Room Air 05/17/17 13:40 97.9 73 20 159/87 96 Nasal Cannula 3.0 05/17/17 13:27 75 15 166/83 96 Simple Mask 6.0 05/17/17 13:22 76 22 159/84 96 Simple Mask 6.0 05/17/17 13:17 97.8 82 21 139/77 96 Simple Mask 6.0 05/17/17 13:15 209.1 78 18 98 05/17/17 13:14 208.0 81 16 98 Intake and Output 05/17/17 05/18/17 19:00 07:00 Intake Total 2200 ml 800 ml Output Total 253 ml 680 ml Balance 1947 ml 120 ml IV Total 2200 ml 800 ml Output Urine Total 250 ml 680 ml Estimated Blood Loss 3 ml # Voids 1 Laboratory Tests 05/18/17 04:10: White Blood Count 13.1H, Red Blood Count 4.30L, Hemoglobin 13.0L, Hematocrit 38.3L, Mean Corpuscular Volume 89, Mean Corpuscular Hemoglobin 30.3, Mean Corpuscular Hemoglobin Concent 34.1, Red Cell Distribution Width 13.1, Platelet Count 206, Mean Platelet Volume 7.3, Neutrophils (%) (Auto) , Lymphocytes (%) ( Auto) , Monocytes (%) (Auto) , Eosinophils (%) (Auto) , Basophils (%) (Auto) , Prothrombin Time 11.4, Prothromb Time International Ratio 1.1, Sodium Level 138 , Potassium Level 3.1L, Chloride Level 104, Carbon Dioxide Level 21, Anion Gap 13, Blood Urea Nitrogen 8, Creatinine 0.8, Estimat Glomerular Filtration Rate , Glucose Level 146H, Calcium Level 8.4L, Magnesium Level 1.3L, Total Bilirubin 2.2H, Direct Bilirubin 0.8H, Aspartate Amino Transf (AST/SGOT) 26, Alanine Aminotransferase (ALT/SGPT) 91H, Alkaline Phosphatase 221H, Total Protein 6.6, Albumin 3.0L, Globulin 3.6, Albumin/Globulin Ratio 0.8L Height (Feet): 5 Height (Inches): 3.00 Weight (Pounds): 106 Objective WDWN NAD noted crepitus clear breath sounds bilaterally without rhonchi or wheeze [id number] without MRG NABS minimally tender RUQ no CCE nonfocal alert skin noted SONI KO May 18, 2017 13:14
--- NOTE | 2017-05-18 13:50 | Physician Query ---
------ THIS DOCUMENT IS A PERMANENT PART OF THE MEDICAL RECORD ------- PLEASE COMPLETE THE DOCUMENT BEFORE SIGNING Dear REY Salcedo Date: 05/18/17 [employer] Tori Merrill [employer] Phone # [phone] Exercise your independent professional judgment when responding to query. Questions asked do not imply particular answer is desired or expected. We greatly appreciate your clarification on this issue. Clinical Documentation States: "Status post ERCP with sphincterotomy, lithotripsy, balloon-assisted stone extraction, and stent placement." "Possible perforation in the esophagus versus duodenal bulb versus periampullary." CT Abdomen Pelvis w/Contrast: "Extensive retroperitoneal air and pneumomediastinum consistent with enteric perforation. The precise location of the perforation is unknown." In the description of the operative procedure: "The patient did tolerate the procedure very well, but in the recovery room, it was felt that the patient has crepitus in the neck area suspicious for perforation in the esophagus versus in the duodenum versus periampullary. In the light of possible risks of ERCP procedure, explained to patient prior to the procedure, such as: hemorrhage, aspiration, perforation: Please respond to the following question: Was the Possible perforation: [] Inherent to the above procedure [] An expected outcome [] A complication of the procedure [] Other [] Clinically undetermined Please also document in your Progress Notes and/or Discharge Summary and indicate if the condition was present on admission. Dr. REY STEEL M.D Date & Time: [facility]
[2017-05-18] MEDS: Cefepime HCl 1 GM in NS 55 ML IVPB SCH (16:33)
--- NOTE | 2017-05-18 16:50 | General Surgery Progress Note ---
General Surgery-Progress Note Subjective Additional Comments doing well. being monitored in ICU. CT findings reviewed. exam benign. comfortable. Objective Last 24 Hour Vital Signs Date Time Temp Pulse Resp B/P (MAP) Pulse Ox O2 Delivery O2 Flow Rate FiO2 05/18/17 13:00 76 21 159/69 95 Room Air 05/18/17 12:12 80 05/18/17 12:00 98.8 77 22 155/64 94 Room Air 05/18/17 11:00 76 21 158/65 95 Room Air 05/18/17 10:00 76 20 161/66 95 Room Air 05/18/17 09:14 75 156/63 05/18/17 09:00 74 19 156/63 94 Room Air 05/18/17 08:00 98.9 76 21 169/71 95 Room Air 05/18/17 07:23 72 05/18/17 07:00 79 19 166/73 94 Room Air 05/18/17 06:00 78 18 162/73 95 Room Air 05/18/17 05:01 163/72 05/18/17 05:00 79 22 164/74 94 Room Air 05/18/17 04:00 98.7 81 20 163/72 95 Room Air 05/18/17 03:00 79 21 160/71 95 Room Air 05/18/17 02:00 78 22 160/67 95 Room Air 05/18/17 01:00 78 20 151/65 93 Room Air 05/18/17 00:00 98.9 84 23 151/67 93 Room Air 05/17/17 23:00 87 23 154/64 93 Room Air 05/17/17 22:00 81 22 160/67 93 Room Air 05/17/17 21:30 98.7 84 23 160/67 95 Room Air 05/17/17 20:00 99.8 83 19 146/72 95 Room Air I&O Intake and Output 05/17/17 05/18/17 19:00 07:00 Intake Total 2200 ml 800 ml Output Total 253 ml 680 ml Balance 1947 ml 120 ml IV Total 2200 ml 800 ml Output Urine Total 250 ml 680 ml Estimated Blood Loss 3 ml # Voids 1 Drains: none Cardiovascular: RSR Respiratory: clear Abdomen: soft, non-tender, present bowel sounds Extremities: no edema, no tenderness Laboratory Tests Test 05/18/17 04:10 White Blood Count 13.1 K/UL (4.8-10.8) H Red Blood Count 4.30 M/UL (4.70-6.10) L Hemoglobin 13.0 G/DL (14.2-18.0) L Hematocrit 38.3 % (42.0-52.0) L Mean Corpuscular Volume 89 FL (80-99) Mean Corpuscular Hemoglobin 30.3 PG (27.0-31.0) Mean Corpuscular Hemoglobin Concent 34.1 G/DL (32.0-36.0) Red Cell Distribution Width 13.1 % (11.6-14.8) Platelet Count 206 K/UL (150-450) Mean Platelet Volume 7.3 FL (6.5-10.1) Neutrophils (%) (Auto) % (45.0-75.0) Lymphocytes (%) (Auto) % (20.0-45.0) Monocytes (%) (Auto) % (1.0-10.0) Eosinophils (%) (Auto) % (0.0-3.0) Basophils (%) (Auto) % (0.0-2.0) Prothrombin Time 11.4 SEC (9.30-11.50) Prothromb Time International Ratio 1.1 (0.9-1.1) Sodium Level 138 MMOL/L (136-145) Potassium Level 3.1 MMOL/L (3.5-5.1) L Chloride Level 104 MMOL/L (98-107) Carbon Dioxide Level 21 MMOL/L (21-32) Anion Gap 13 mmol/L (5-15) Blood Urea Nitrogen 8 mg/dL (7-18) Creatinine 0.8 MG/DL (0.55-1.30) Estimat Glomerular Filtration Rate mL/min (>60) Glucose Level 146 MG/DL (74-106) H Calcium Level 8.4 MG/DL (8.5-10.1) L Magnesium Level 1.3 MG/DL (1.8-2.4) L Total Bilirubin 2.2 MG/DL (0.2-1.0) H Direct Bilirubin 0.8 MG/DL (0.0-0.3) H Aspartate Amino Transf (AST/SGOT) 26 U/L (15-37) Alanine Aminotransferase (ALT/SGPT) 91 U/L (12-78) H Alkaline Phosphatase 221 U/L (46-116) H Total Protein 6.6 G/DL (6.4-8.2) Albumin 3.0 G/DL (3.4-5.0) L Globulin 3.6 g/dL Albumin/Globulin Ratio 0.8 (1.0-2.7) L Additional Comments still with crepitus around neck and chest and flank but not worse than prior Plan Problems: (1) Choledocholithiasis Assessment & Plan: 81M s/p uneventful ERCP for choledocholithiasis was noted to have crepitus post procedure. CT demonstrated retroperitoneal air and similar findings to clinical exam. No noted injury during procedure which was otherwise uneventful. Although many possible differential diagnosis most likely is small retroperitoneal perforation during procedure. No definitive site of injury could be seen on CT when I reviewed it. No significant esophageal injury could be noted on CT. Given above findings would recommend medical management for now. NPO, IV fluids, IV Abx. If clinically deteriorates will consider endoscopy to see if site of injury can be identified and clipped. May requires surgery as well but fortunately if not too severe these will heal themselves without sequela. will follow with recs. thank you for this consultation. Gigi Crowder May 18, 2017 16:49
[2017-05-19] VITALS (23 sets, daily range): BP systolic 135–157; BP diastolic 55–66
[2017-05-19] MEDS: NovoLOG Insulin Flexpen SUBQ SCH ×4 (05:46→21:07)
[2017-05-19 06:59] LABS: HEMATOCRIT 38.1 % (42.0-52.0); HEMOGLOBIN 12.8 G/DL (14.2-18.0); MEAN CORPUSCULAR VOLUME 89 FL (80-99); PLATELET COUNT 215 K/UL (150-450); RED BLOOD COUNT 4.26 M/UL (4.70-6.10); RED CELL DISTRIBUTION WIDTH 13.2 % (11.6-14.8); WHITE BLOOD COUNT 11.3 K/UL (4.8-10.8)
[2017-05-19 07:03] LABS: ALANINE AMINOTRANSFERASE 63 U/L (12-78); ALBUMIN 2.6 G/DL (3.4-5.0); ALBUMIN/GLOBULIN RATIO 0.7 (1.0-2.7); ALKALINE PHOSPHATASE 178 U/L (46-116); ANION GAP 15 mmol/L (5-15); ASPARTATE AMINO TRANSFERASE 18 U/L (15-37); BILIRUBIN,TOTAL 1.8 MG/DL (0.2-1.0); BLOOD UREA NITROGEN 12 mg/dL (7-18); CALCIUM 7.9 MG/DL (8.5-10.1); CARBON DIOXIDE 17 MMOL/L (21-32); CHLORIDE 106 MMOL/L (98-107); CREATININE 0.9 MG/DL (0.55-1.30); POTASSIUM 3.2 MMOL/L (3.5-5.1); SODIUM 138 MMOL/L (136-145)
[2017-05-19 07:04] LABS: BILIRUBIN,DIRECT 0.6 MG/DL (0.0-0.3)
[2017-05-19] MEDS: Heparin 5000 units/ml inj SUBQ SCH ×2 (08:31→21:09)
[2017-05-19] MEDS: Morphine Sulfate 2mg/ml Inj IVP PRN ×2 (10:36→16:51)
--- NOTE | 2017-05-19 13:11 | General Surgery Progress Note ---
General Surgery-Progress Note Subjective Symptoms: improved Additional Comments comfortable. talkative. no complaints. afebrile, HD stable, labs improved. Objective Last 24 Hour Vital Signs Date Time Temp Pulse Resp B/P (MAP) Pulse Ox O2 Delivery O2 Flow Rate FiO2 05/19/17 11:00 67 18 145/63 95 Room Air 05/19/17 10:00 69 21 136/60 96 Room Air 05/19/17 09:00 64 23 147/60 96 Room Air 05/19/17 08:29 67 152/63 05/19/17 08:00 70 05/19/17 08:00 99.0 66 27 152/63 95 Room Air 05/19/17 07:00 67 20 147/63 94 Room Air 05/19/17 06:00 71 19 145/60 94 Room Air 05/19/17 05:00 66 20 149/61 94 Room Air 05/19/17 04:00 80 05/19/17 04:00 98.5 66 20 149/65 95 Room Air 05/19/17 03:00 71 21 140/65 95 Room Air 05/19/17 02:00 67 19 146/59 95 Room Air 05/19/17 01:00 72 21 142/64 95 Room Air 05/19/17 00:00 99.0 73 21 135/63 95 Room Air 05/19/17 00:00 75 05/18/17 23:00 74 21 146/63 95 Room Air 05/18/17 22:00 99.0 75 22 154/67 94 Room Air 05/18/17 21:00 76 22 143/64 93 Room Air 05/18/17 20:00 76 05/18/17 20:00 99.1 76 21 155/67 94 Room Air 05/18/17 19:00 75 22 133/60 94 Room Air 05/18/17 18:00 76 21 155/68 94 Room Air 05/18/17 17:00 75 23 148/65 96 Room Air 05/18/17 16:00 98.9 76 22 159/72 95 Room Air 05/18/17 15:00 76 21 152/64 95 Room Air 05/18/17 14:00 74 22 157/64 94 Room Air I&O Intake and Output 05/18/17 05/19/17 19:00 07:00 Intake Total 1335 ml 1200 ml Output Total 555 ml 430 ml Balance 780 ml 770 ml IV Total 1285 ml 1200 ml Other 50 ml Output Urine Total 540 ml 420 ml Gastric Drainage Total 15 ml 10 ml Cardiovascular: RSR Respiratory: clear Abdomen: soft, flat, non-tender, present bowel sounds Extremities: no tenderness Laboratory Tests Test 05/19/17 05:00 White Blood Count 11.3 K/UL (4.8-10.8) H Red Blood Count 4.26 M/UL (4.70-6.10) L Hemoglobin 12.8 G/DL (14.2-18.0) L Hematocrit 38.1 % (42.0-52.0) L Mean Corpuscular Volume 89 FL (80-99) Mean Corpuscular Hemoglobin 30.1 PG (27.0-31.0) Mean Corpuscular Hemoglobin Concent 33.6 G/DL (32.0-36.0) Red Cell Distribution Width 13.2 % (11.6-14.8) Platelet Count 215 K/UL (150-450) Mean Platelet Volume 6.8 FL (6.5-10.1) Neutrophils (%) (Auto) % (45.0-75.0) Lymphocytes (%) (Auto) % (20.0-45.0) Monocytes (%) (Auto) % (1.0-10.0) Eosinophils (%) (Auto) % (0.0-3.0) Basophils (%) (Auto) % (0.0-2.0) Differential Total Cells Counted 100 Neutrophils % (Manual) 82 % (45-75) H Lymphocytes % (Manual) 12 % (20-45) L Monocytes % (Manual) 6 % (1-10) Eosinophils % (Manual) 0 % (0-3) Basophils % (Manual) 0 % (0-2) Band Neutrophils 0 % (0-8) Platelet Estimate Adequate Platelet Morphology Normal Red Blood Cell Morphology Normal Sodium Level 138 MMOL/L (136-145) Potassium Level 3.2 MMOL/L (3.5-5.1) L Chloride Level 106 MMOL/L (98-107) Carbon Dioxide Level 17 MMOL/L (21-32) L Anion Gap 15 mmol/L (5-15) Blood Urea Nitrogen 12 mg/dL (7-18) Creatinine 0.9 MG/DL (0.55-1.30) Estimat Glomerular Filtration Rate mL/min (>60) Glucose Level 140 MG/DL (74-106) H Calcium Level 7.9 MG/DL (8.5-10.1) L Magnesium Level 1.8 MG/DL (1.8-2.4) Total Bilirubin 1.8 MG/DL (0.2-1.0) H Direct Bilirubin 0.6 MG/DL (0.0-0.3) H Aspartate Amino Transf (AST/SGOT) 18 U/L (15-37) Alanine Aminotransferase (ALT/SGPT) 63 U/L (12-78) Alkaline Phosphatase 178 U/L (46-116) H Total Protein 6.3 G/DL (6.4-8.2) L Albumin 2.6 G/DL (3.4-5.0) L Globulin 3.7 g/dL Albumin/Globulin Ratio 0.7 (1.0-2.7) L Additional Comments crepitus improved Plan Problems: (1) Choledocholithiasis Assessment & Plan: 81M s/p uneventful ERCP for choledocholithiasis was noted to have crepitus post procedure. CT demonstrated retroperitoneal air and similar findings to clinical exam. No noted injury during procedure which was otherwise uneventful. Although many possible differential diagnosis most likely is small retroperitoneal perforation during procedure. No definitive site of injury could be seen on CT when I reviewed it. No significant esophageal injury could be noted on CT. afebrile, HD stable, leukocytosis improving. Continue current care and management NPO, IV fluids, IV Abx. d/c ng tube will follow with recs. thank you for this consultation. Gigi Crowder May 19, 2017 13:10
[2017-05-19] MEDS ORDERED: Potassium Chloride 60 MEQ in NS 1000ml 1,000 ML IV ONE (14:00)
--- NOTE | 2017-05-19 15:19 | General Progress Note ---
Assessment/Plan Assessment/Plan 1. Common bile duct obstruction. 2. Gallstone-related hepatitis. 3. Diabetes. 4. Possible mild dehydration. 5. s/p perforation 6. subcutan air 7. small pneumothorax RECOMMENDATION: NPO per surgery . IV hydration. Pain control. Antiemetics. GI and GS evaluation noted, CT noted and follow up PRN reviewed nursing care; monitor in ICU and transfer if ok with Gs hopefully medical management will be sufficient and may resume PO soon impression, plan, and exam edited and reviewed in detail care discussed with RN Subjective Allergies: Coded Allergies: No Known Allergies (Unverified , 05/14/17) Subjective care noted in ICU gs appreciated- discussed- still NPO but improved d/w gi and appreciated probable perforation but likely self limited Objective Last 24 Hour Vital Signs Date Time Temp Pulse Resp B/P (MAP) Pulse Ox O2 Delivery O2 Flow Rate FiO2 05/19/17 14:00 69 20 146/59 96 Room Air 05/19/17 13:00 66 21 136/62 96 Room Air 05/19/17 12:00 98.8 68 22 145/63 96 Room Air 05/19/17 11:00 67 18 145/63 95 Room Air 05/19/17 10:00 69 21 136/60 96 Room Air 05/19/17 09:00 64 23 147/60 96 Room Air 05/19/17 08:29 67 152/63 05/19/17 08:00 70 05/19/17 08:00 99.0 66 27 152/63 95 Room Air 05/19/17 07:00 67 20 147/63 94 Room Air 05/19/17 06:00 71 19 145/60 94 Room Air 05/19/17 05:00 66 20 149/61 94 Room Air 05/19/17 04:00 80 05/19/17 04:00 98.5 66 20 149/65 95 Room Air 05/19/17 03:00 71 21 140/65 95 Room Air 05/19/17 02:00 67 19 146/59 95 Room Air 05/19/17 01:00 72 21 142/64 95 Room Air 05/19/17 00:00 99.0 73 21 135/63 95 Room Air 05/19/17 00:00 75 05/18/17 23:00 74 21 146/63 95 Room Air 05/18/17 22:00 99.0 75 22 154/67 94 Room Air 05/18/17 21:00 76 22 143/64 93 Room Air 05/18/17 20:00 76 05/18/17 20:00 99.1 76 21 155/67 94 Room Air 05/18/17 19:00 75 22 133/60 94 Room Air 05/18/17 18:00 76 21 155/68 94 Room Air 05/18/17 17:00 75 23 148/65 96 Room Air 05/18/17 16:00 98.9 76 22 159/72 95 Room Air Intake and Output 05/18/17 05/19/17 19:00 07:00 Intake Total 1335 ml 1200 ml Output Total 555 ml 430 ml Balance 780 ml 770 ml IV Total 1285 ml 1200 ml Other 50 ml Output Urine Total 540 ml 420 ml Gastric Drainage Total 15 ml 10 ml Laboratory Tests 05/19/17 05:00: White Blood Count 11.3H, Red Blood Count 4.26L, Hemoglobin 12.8L, Hematocrit 38.1L, Mean Corpuscular Volume 89, Mean Corpuscular Hemoglobin 30.1, Mean Corpuscular Hemoglobin Concent 33.6, Red Cell Distribution Width 13.2, Platelet Count 215, Mean Platelet Volume 6.8, Neutrophils (%) (Auto) , Lymphocytes (%) ( Auto) , Monocytes (%) (Auto) , Eosinophils (%) (Auto) , Basophils (%) (Auto) , Differential Total Cells Counted 100, Neutrophils % (Manual) 82H, Lymphocytes % (Manual) 12L, Monocytes % (Manual) 6, Eosinophils % (Manual) 0, Basophils % ( Manual) 0, Band Neutrophils 0, Platelet Estimate Adequate, Platelet Morphology Normal, Red Blood Cell Morphology Normal, Sodium Level 138, Potassium Level 3.2L , Chloride Level 106, Carbon Dioxide Level 17L, Anion Gap 15, Blood Urea Nitrogen 12, Creatinine 0.9, Estimat Glomerular Filtration Rate , Glucose Level 140H, Calcium Level 7.9L, Magnesium Level 1.8, Total Bilirubin 1.8H, Direct Bilirubin 0.6H, Aspartate Amino Transf (AST/SGOT) 18, Alanine Aminotransferase ( ALT/SGPT) 63, Alkaline Phosphatase 178H, Total Protein 6.3L, Albumin 2.6L, Globulin 3.7, Albumin/Globulin Ratio 0.7L Height (Feet): 5 Height (Inches): 3.00 Weight (Pounds): 110 Objective WDWN NAD noted crepitus improved clear breath sounds bilaterally without rhonchi or wheeze [id number] without MRG NABS minimally tender RUQ no CCE nonfocal alert skin noted SONI KO May 19, 2017 15:18
[2017-05-19] MEDS: Cefepime HCl 1 GM in NS 55 ML IVPB SCH (16:22)
[2017-05-19] MEDS ORDERED: METOPROLOL TART25 MG ORAL (16:30)
[2017-05-19] MEDS ORDERED: AMLODIPINE BESYL5 MG ORAL (16:30)
--- NOTE | 2017-05-19 20:16 | General Progress Note ---
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 with retroperitoneal free air Recommendations - follow labs and exam closely - agree with trial of non-operative management - NPO --> clear liquids in am if OK with surgery - agree with d/c NGT - IVF - Broad spectrum antibiotics Subjective Allergies: Coded Allergies: No Known Allergies (Unverified , 05/14/17) Subjective Above noted seen in ICU hungry Objective Last 24 Hour Vital Signs Date Time Temp Pulse Resp B/P (MAP) Pulse Ox O2 Delivery O2 Flow Rate FiO2 05/19/17 19:00 63 21 137/57 96 Room Air 05/19/17 18:00 58 20 140/61 96 Room Air 05/19/17 17:00 57 22 138/59 96 Room Air 05/19/17 16:00 98.6 65 18 141/66 96 Room Air 05/19/17 15:32 61 05/19/17 15:00 60 21 137/55 95 Room Air 05/19/17 14:00 69 20 146/59 96 Room Air 05/19/17 13:00 66 21 136/62 96 Room Air 05/19/17 12:00 98.8 68 22 145/63 96 Room Air 05/19/17 11:05 69 05/19/17 11:00 67 18 145/63 95 Room Air 05/19/17 10:00 69 21 136/60 96 Room Air 05/19/17 09:00 64 23 147/60 96 Room Air 05/19/17 08:29 67 152/63 05/19/17 08:00 70 05/19/17 08:00 99.0 66 27 152/63 95 Room Air 05/19/17 07:00 67 20 147/63 94 Room Air 05/19/17 06:00 71 19 145/60 94 Room Air 05/19/17 05:00 66 20 149/61 94 Room Air 05/19/17 04:00 80 05/19/17 04:00 98.5 66 20 149/65 95 Room Air 05/19/17 03:00 71 21 140/65 95 Room Air 05/19/17 02:00 67 19 146/59 95 Room Air 05/19/17 01:00 72 21 142/64 95 Room Air 05/19/17 00:00 99.0 73 21 135/63 95 Room Air 05/19/17 00:00 75 05/18/17 23:00 74 21 146/63 95 Room Air 05/18/17 22:00 99.0 75 22 154/67 94 Room Air 05/18/17 21:00 76 22 143/64 93 Room Air Intake and Output 05/18/17 05/19/17 19:00 07:00 Intake Total 1335 ml 1200 ml Output Total 555 ml 430 ml Balance 780 ml 770 ml IV Total 1285 ml 1200 ml Other 50 ml Output Urine Total 540 ml 420 ml Gastric Drainage Total 15 ml 10 ml Laboratory Tests 05/19/17 05:00: White Blood Count 11.3H, Red Blood Count 4.26L, Hemoglobin 12.8L, Hematocrit 38.1L, Mean Corpuscular Volume 89, Mean Corpuscular Hemoglobin 30.1, Mean Corpuscular Hemoglobin Concent 33.6, Red Cell Distribution Width 13.2, Platelet Count 215, Mean Platelet Volume 6.8, Neutrophils (%) (Auto) , Lymphocytes (%) ( Auto) , Monocytes (%) (Auto) , Eosinophils (%) (Auto) , Basophils (%) (Auto) , Differential Total Cells Counted 100, Neutrophils % (Manual) 82H, Lymphocytes % (Manual) 12L, Monocytes % (Manual) 6, Eosinophils % (Manual) 0, Basophils % ( Manual) 0, Band Neutrophils 0, Platelet Estimate Adequate, Platelet Morphology Normal, Red Blood Cell Morphology Normal, Sodium Level 138, Potassium Level 3.2L , Chloride Level 106, Carbon Dioxide Level 17L, Anion Gap 15, Blood Urea Nitrogen 12, Creatinine 0.9, Estimat Glomerular Filtration Rate , Glucose Level 140H, Calcium Level 7.9L, Magnesium Level 1.8, Total Bilirubin 1.8H, Direct Bilirubin 0.6H, Aspartate Amino Transf (AST/SGOT) 18, Alanine Aminotransferase ( ALT/SGPT) 63, Alkaline Phosphatase 178H, Total Protein 6.3L, Albumin 2.6L, Globulin 3.7, Albumin/Globulin Ratio 0.7L Height (Feet): 5 Height (Inches): 3.00 Weight (Pounds): 110 Objective WDWN Man NCAT supple, minimal crepitus at base of neck CTA RRR Soft NT ND no edema non focal MIRANDA LAURENT May 19, 2017 20:16
[2017-05-20] VITALS: BP 151/60
[2017-05-20] MEDS ORDERED: Morphine Sulfate 2mg/ml Inj IVP PRN (02:30)
[2017-05-20] MEDS ORDERED: Morphine Sulfate 4mg/ml Inj IVP PRN (02:30)
[2017-05-20 04:00] VITALS: BP 145/69
[2017-05-20 04:48] LABS: BASOPHILS % (AUTO) 0.8 % (0.0-2.0); EOSINOPHILS % (AUTO) 1.7 % (0.0-3.0); HEMATOCRIT 33.5 % (42.0-52.0); HEMOGLOBIN 11.5 G/DL (14.2-18.0); LYMPHOCYTES % (AUTO) 10.7 % (20.0-45.0); MEAN CORPUSCULAR VOLUME 89 FL (80-99); MONOCYTES % (AUTO) 6.8 % (1.0-10.0); PLATELET COUNT 180 K/UL (150-450); RED BLOOD COUNT 3.76 M/UL (4.70-6.10); RED CELL DISTRIBUTION WIDTH 13.8 % (11.6-14.8)
[2017-05-20 05:12] LABS: ALANINE AMINOTRANSFERASE 45 U/L (12-78); ALBUMIN 2.3 G/DL (3.4-5.0); ALBUMIN/GLOBULIN RATIO 0.6 (1.0-2.7); ALKALINE PHOSPHATASE 149 U/L (46-116); ANION GAP 10 mmol/L (5-15); ASPARTATE AMINO TRANSFERASE 13 U/L (15-37); BILIRUBIN,TOTAL 1.3 MG/DL (0.2-1.0); BLOOD UREA NITROGEN 12 mg/dL (7-18); CALCIUM 7.8 MG/DL (8.5-10.1); CARBON DIOXIDE 19 MMOL/L (21-32); CHLORIDE 111 MMOL/L (98-107); CREATININE 0.7 MG/DL (0.55-1.30); POTASSIUM 3.8 MMOL/L (3.5-5.1); SODIUM 140 MMOL/L (136-145)
[2017-05-20 05:15] LABS: BILIRUBIN,DIRECT 0.5 MG/DL (0.0-0.3)
[2017-05-20] MEDS: NovoLOG Insulin Flexpen SUBQ SCH ×4 (06:30→21:00)
[2017-05-20 08:00] VITALS: BP 150/72
--- NOTE | 2017-05-20 08:00 | General Progress Note ---
Assessment/Plan Assessment/Plan 1. Common bile duct obstruction. 2. Gallstone-related hepatitis. 3. Diabetes. 4. Possible mild dehydration. 5. s/p perforation 6. subcutan air 7. small pneumothorax RECOMMENDATION: diet per surgery . IV hydration. Pain control. Antiemetics. GI and GS evaluation noted, CT noted reviewed nursing care; monitor as is replace magnesium hopefully medical management will be sufficient and may resume PO soon impression, plan, and exam edited and reviewed in detail care discussed with RN Subjective Allergies: Coded Allergies: No Known Allergies (Unverified , 05/14/17) Subjective care noted had NSVT low mag gs appreciated- discussed- still NPO but improved d/w gi and appreciated improving Objective Last 24 Hour Vital Signs Date Time Temp Pulse Resp B/P (MAP) Pulse Ox O2 Delivery O2 Flow Rate FiO2 05/20/17 04:00 97.4 58 20 145/69 95 Room Air 05/20/17 04:00 58 05/20/17 00:00 98.1 53 20 151/60 96 Room Air 05/20/17 00:00 63 05/19/17 22:00 63 17 138/63 95 Room Air 05/19/17 21:00 62 19 157/61 95 Room Air 05/19/17 20:00 98.5 61 20 147/59 96 Room Air 05/19/17 20:00 59 05/19/17 19:00 63 21 137/57 96 Room Air 05/19/17 18:00 58 20 140/61 96 Room Air 05/19/17 17:00 57 22 138/59 96 Room Air 05/19/17 16:00 98.6 65 18 141/66 96 Room Air 05/19/17 15:32 61 05/19/17 15:00 60 21 137/55 95 Room Air 05/19/17 14:00 69 20 146/59 96 Room Air 05/19/17 13:00 66 21 136/62 96 Room Air 05/19/17 12:00 98.8 68 22 145/63 96 Room Air 05/19/17 11:05 69 05/19/17 11:00 67 18 145/63 95 Room Air 05/19/17 10:00 69 21 136/60 96 Room Air 05/19/17 09:00 64 23 147/60 96 Room Air 05/19/17 08:29 67 152/63 05/19/17 08:00 70 05/19/17 08:00 99.0 66 27 152/63 95 Room Air Intake and Output 05/19/17 05/20/17 19:00 07:00 Intake Total 2085 ml 2145 ml Output Total 730 ml 1020 ml Balance 1355 ml 1125 ml IV Total 2085 ml 2145 ml Output Urine Total 730 ml 1020 ml Laboratory Tests 05/20/17 04:00: White Blood Count 8.0, Red Blood Count 3.76L, Hemoglobin 11.5L, Hematocrit 33.5L , Mean Corpuscular Volume 89, Mean Corpuscular Hemoglobin 30.4, Mean Corpuscular Hemoglobin Concent 34.1, Red Cell Distribution Width 13.8, Platelet Count 180, Mean Platelet Volume 7.0, Neutrophils (%) (Auto) 80.0H, Lymphocytes ( %) (Auto) 10.7L, Monocytes (%) (Auto) 6.8, Eosinophils (%) (Auto) 1.7, Basophils (%) (Auto) 0.8, Sodium Level 140, Potassium Level 3.8, Chloride Level 111H, Carbon Dioxide Level 19L, Anion Gap 10, Blood Urea Nitrogen 12, Creatinine 0.7, Estimat Glomerular Filtration Rate , Glucose Level 140H, Calcium Level 7.8L, Magnesium Level 1.6L, Total Bilirubin 1.3H, Direct Bilirubin 0.5H, Aspartate Amino Transf (AST/SGOT) 13L, Alanine Aminotransferase (ALT/SGPT) 45, Alkaline Phosphatase 149H, Total Protein 5.9L, Albumin 2.3L, Globulin 3.6, Albumin/Globulin Ratio 0.6L Height (Feet): 5 Height (Inches): 3.00 Weight (Pounds): 113 Objective WDWN NAD noted crepitus minimal clear breath sounds bilaterally without rhonchi or wheeze [id number] without MRG NABS minimally tender no HSM no CCE nonfocal alert skin noted SONI KO May 20, 2017 08:00
--- NOTE | 2017-05-20 08:46 | General Surgery Progress Note ---
General Surgery-Progress Note Subjective Symptoms: improved Additional Comments doing well. downgraded from ICU. comfortable. no complaints. doing much better with NG tube out. afebrile, HD Stable, lab improving. crepitus improving Objective Last 24 Hour Vital Signs Date Time Temp Pulse Resp B/P (MAP) Pulse Ox O2 Delivery O2 Flow Rate FiO2 05/20/17 08:00 97.5 65 18 150/72 95 Room Air 05/20/17 04:00 97.4 58 20 145/69 95 Room Air 05/20/17 04:00 58 05/20/17 00:00 98.1 53 20 151/60 96 Room Air 05/20/17 00:00 63 05/19/17 22:00 63 17 138/63 95 Room Air 05/19/17 21:00 62 19 157/61 95 Room Air 05/19/17 20:00 98.5 61 20 147/59 96 Room Air 05/19/17 20:00 59 05/19/17 19:00 63 21 137/57 96 Room Air 05/19/17 18:00 58 20 140/61 96 Room Air 05/19/17 17:00 57 22 138/59 96 Room Air 05/19/17 16:00 98.6 65 18 141/66 96 Room Air 05/19/17 15:32 61 05/19/17 15:00 60 21 137/55 95 Room Air 05/19/17 14:00 69 20 146/59 96 Room Air 05/19/17 13:00 66 21 136/62 96 Room Air 05/19/17 12:00 98.8 68 22 145/63 96 Room Air 05/19/17 11:05 69 05/19/17 11:00 67 18 145/63 95 Room Air 05/19/17 10:00 69 21 136/60 96 Room Air 05/19/17 09:00 64 23 147/60 96 Room Air I&O Intake and Output 05/19/17 05/20/17 19:00 07:00 Intake Total 2085 ml 2145 ml Output Total 730 ml 1020 ml Balance 1355 ml 1125 ml IV Total 2085 ml 2145 ml Output Urine Total 730 ml 1020 ml Cardiovascular: RSR Respiratory: clear Abdomen: soft, flat, non-tender, present bowel sounds Extremities: no cyanosis Laboratory Tests Test 05/20/17 04:00 White Blood Count 8.0 K/UL (4.8-10.8) Red Blood Count 3.76 M/UL (4.70-6.10) L Hemoglobin 11.5 G/DL (14.2-18.0) L Hematocrit 33.5 % (42.0-52.0) L Mean Corpuscular Volume 89 FL (80-99) Mean Corpuscular Hemoglobin 30.4 PG (27.0-31.0) Mean Corpuscular Hemoglobin Concent 34.1 G/DL (32.0-36.0) Red Cell Distribution Width 13.8 % (11.6-14.8) Platelet Count 180 K/UL (150-450) Mean Platelet Volume 7.0 FL (6.5-10.1) Neutrophils (%) (Auto) 80.0 % (45.0-75.0) H Lymphocytes (%) (Auto) 10.7 % (20.0-45.0) L Monocytes (%) (Auto) 6.8 % (1.0-10.0) Eosinophils (%) (Auto) 1.7 % (0.0-3.0) Basophils (%) (Auto) 0.8 % (0.0-2.0) Sodium Level 140 MMOL/L (136-145) Potassium Level 3.8 MMOL/L (3.5-5.1) Chloride Level 111 MMOL/L (98-107) H Carbon Dioxide Level 19 MMOL/L (21-32) L Anion Gap 10 mmol/L (5-15) Blood Urea Nitrogen 12 mg/dL (7-18) Creatinine 0.7 MG/DL (0.55-1.30) Estimat Glomerular Filtration Rate mL/min (>60) Glucose Level 140 MG/DL (74-106) H Calcium Level 7.8 MG/DL (8.5-10.1) L Magnesium Level 1.6 MG/DL (1.8-2.4) L Total Bilirubin 1.3 MG/DL (0.2-1.0) H Direct Bilirubin 0.5 MG/DL (0.0-0.3) H Aspartate Amino Transf (AST/SGOT) 13 U/L (15-37) L Alanine Aminotransferase (ALT/SGPT) 45 U/L (12-78) Alkaline Phosphatase 149 U/L (46-116) H Total Protein 5.9 G/DL (6.4-8.2) L Albumin 2.3 G/DL (3.4-5.0) L Globulin 3.6 g/dL Albumin/Globulin Ratio 0.6 (1.0-2.7) L Plan Problems: (1) Choledocholithiasis Assessment & Plan: 81M s/p uneventful ERCP for choledocholithiasis was noted to have crepitus post procedure. CT demonstrated retroperitoneal air and similar findings to clinical exam. No noted injury during procedure which was otherwise uneventful. Although many possible differential diagnosis most likely is small retroperitoneal perforation during procedure. No definitive site of injury could be seen on CT when I reviewed it. No significant esophageal injury could be noted on CT. afebrile, HD stable, leukocytosis resolved Continue current care and management NPO, IV fluids, IV Abx. not ready for diet. CXR today will follow with recs. thank you for this consultation. Gigi Crowder May 20, 2017 08:46
[2017-05-20] MEDS: Heparin 5000 units/ml inj SUBQ SCH ×2 (09:00→21:30)
--- NOTE | 2017-05-20 09:32 | General Progress Note ---
Assessment/Plan Assessment/Plan Assessment - choledocholithiasis - Jaundice - improved - s/p ERCP and stone extraction - resolving perforation Recommendations - follow labs and exam - clear liquids when OK with surgery - IVF - Broad spectrum antibiotics Subjective Allergies: Coded Allergies: No Known Allergies (Unverified , 05/14/17) Subjective Above noted out of ICU no abd pain Objective Last 24 Hour Vital Signs Date Time Temp Pulse Resp B/P (MAP) Pulse Ox O2 Delivery O2 Flow Rate FiO2 05/20/17 08:58 65 150/72 05/20/17 08:00 97.5 65 18 150/72 95 Room Air 05/20/17 04:00 97.4 58 20 145/69 95 Room Air 05/20/17 04:00 58 05/20/17 00:00 98.1 53 20 151/60 96 Room Air 05/20/17 00:00 63 05/19/17 22:00 63 17 138/63 95 Room Air 05/19/17 21:00 62 19 157/61 95 Room Air 05/19/17 20:00 98.5 61 20 147/59 96 Room Air 05/19/17 20:00 59 05/19/17 19:00 63 21 137/57 96 Room Air 05/19/17 18:00 58 20 140/61 96 Room Air 05/19/17 17:00 57 22 138/59 96 Room Air 05/19/17 16:00 98.6 65 18 141/66 96 Room Air 05/19/17 15:32 61 05/19/17 15:00 60 21 137/55 95 Room Air 05/19/17 14:00 69 20 146/59 96 Room Air 05/19/17 13:00 66 21 136/62 96 Room Air 05/19/17 12:00 98.8 68 22 145/63 96 Room Air 05/19/17 11:05 69 05/19/17 11:00 67 18 145/63 95 Room Air 05/19/17 10:00 69 21 136/60 96 Room Air Intake and Output 05/19/17 05/20/17 19:00 07:00 Intake Total 2085 ml 2145 ml Output Total 730 ml 1020 ml Balance 1355 ml 1125 ml IV Total 2085 ml 2145 ml Output Urine Total 730 ml 1020 ml Laboratory Tests 05/20/17 04:00: White Blood Count 8.0, Red Blood Count 3.76L, Hemoglobin 11.5L, Hematocrit 33.5L , Mean Corpuscular Volume 89, Mean Corpuscular Hemoglobin 30.4, Mean Corpuscular Hemoglobin Concent 34.1, Red Cell Distribution Width 13.8, Platelet Count 180, Mean Platelet Volume 7.0, Neutrophils (%) (Auto) 80.0H, Lymphocytes ( %) (Auto) 10.7L, Monocytes (%) (Auto) 6.8, Eosinophils (%) (Auto) 1.7, Basophils (%) (Auto) 0.8, Sodium Level 140, Potassium Level 3.8, Chloride Level 111H, Carbon Dioxide Level 19L, Anion Gap 10, Blood Urea Nitrogen 12, Creatinine 0.7, Estimat Glomerular Filtration Rate , Glucose Level 140H, Calcium Level 7.8L, Magnesium Level 1.6L, Total Bilirubin 1.3H, Direct Bilirubin 0.5H, Aspartate Amino Transf (AST/SGOT) 13L, Alanine Aminotransferase (ALT/SGPT) 45, Alkaline Phosphatase 149H, Total Protein 5.9L, Albumin 2.3L, Globulin 3.6, Albumin/Globulin Ratio 0.6L Height (Feet): 5 Height (Inches): 3.00 Weight (Pounds): 113 Objective WDWN Man NCAT supple, minimal crepitus at base of neck CTA RRR Soft NT ND no edema non focal MIRANDA LAURENT May 20, 2017 09:32
--- NOTE | 2017-05-20 10:36 | Cardiology Report ---
APPROVED REPORT EKG Measurement Heart [id number] Normal sinus rhythm Septal infarct, age undetermined Abnormal ECG
--- NOTE | 2017-05-20 11:25 | Diagnostic Imaging Report ---
Indication: Dyspnea Comparison: None A single view chest radiograph was obtained. Findings: Pneumomediastinum and subcutaneous air demonstrated. There is a small right pneumothorax. Heart is borderline enlarged. Aorta is ectatic. Bones are osteopenic. IMPRESSION: Pneumomediastinum. Small right pneumothorax. Extensive subcutaneous emphysema
[2017-05-20 12:00] VITALS: BP 152/77
[2017-05-20 16:00] VITALS: BP 151/70
[2017-05-20] MEDS: Cefepime HCl 1 GM in NS 55 ML IVPB SCH (16:25)
[2017-05-20] MEDS ORDERED: Tubing IV Secondary IV ONE ×2 (17:35→17:45)
[2017-05-20 20:00] VITALS: BP 154/71
[2017-05-21] VITALS: BP 143/69
[2017-05-21 04:00] VITALS: BP 149/75
[2017-05-21 05:12] LABS: BASOPHILS % (AUTO) 1.2 % (0.0-2.0); EOSINOPHILS % (AUTO) 3.6 % (0.0-3.0); HEMATOCRIT 34.6 % (42.0-52.0); HEMOGLOBIN 11.9 G/DL (14.2-18.0); LYMPHOCYTES % (AUTO) 15.7 % (20.0-45.0); MEAN CORPUSCULAR VOLUME 88 FL (80-99); MONOCYTES % (AUTO) 7.8 % (1.0-10.0); NEUTROPHILS % (AUTO) 71.6 % (45.0-75.0); PLATELET COUNT 192 K/UL (150-450); RED BLOOD COUNT 3.93 M/UL (4.70-6.10); RED CELL DISTRIBUTION WIDTH 13.3 % (11.6-14.8); WHITE BLOOD COUNT 5.7 K/UL (4.8-10.8)
[2017-05-21 05:42] LABS: ALANINE AMINOTRANSFERASE 39 U/L (12-78); ALBUMIN 2.4 G/DL (3.4-5.0); ALBUMIN/GLOBULIN RATIO 0.7 (1.0-2.7); ALKALINE PHOSPHATASE 147 U/L (46-116); ANION GAP 14 mmol/L (5-15); ASPARTATE AMINO TRANSFERASE 26 U/L (15-37); BILIRUBIN,TOTAL 1.3 MG/DL (0.2-1.0); BLOOD UREA NITROGEN 8 mg/dL (7-18); CALCIUM 7.7 MG/DL (8.5-10.1); CARBON DIOXIDE 18 MMOL/L (21-32); CHLORIDE 106 MMOL/L (98-107); CREATININE 0.6 MG/DL (0.55-1.30); POTASSIUM 3.2 MMOL/L (3.5-5.1); SODIUM 138 MMOL/L (136-145)
[2017-05-21 05:45] LABS: BILIRUBIN,DIRECT 0.4 MG/DL (0.0-0.3)
[2017-05-21] MEDS: NovoLOG Insulin Flexpen SUBQ SCH ×4 (05:46→21:00)
[2017-05-21 08:00] VITALS: BP 150/72
--- NOTE | 2017-05-21 08:35 | General Progress Note ---
Assessment/Plan Assessment/Plan 1. Common bile duct obstruction. 2. Gallstone-related hepatitis. 3. Diabetes. 4. Possible mild dehydration. 5. s/p perforation after ERCP 6. subcutan air 7. small pneumothorax RECOMMENDATION: diet per surgery. still NPO. IV hydration. Pain control. Antiemetics. GI and GS evaluation noted, CT noted reviewed nursing care; monitor as is replace magnesium and potassium hopefully medical management will be sufficient and may resume PO soon with dc planning impression, plan, and exam edited and reviewed in detail care discussed with RN Subjective Allergies: Coded Allergies: No Known Allergies (Unverified , 05/14/17) Subjective care noted no distress lytes replaced Objective Last 24 Hour Vital Signs Date Time Temp Pulse Resp B/P (MAP) Pulse Ox O2 Delivery O2 Flow Rate FiO2 05/21/17 04:00 98.4 61 20 149/75 95 Room Air 05/21/17 03:41 59 05/21/17 00:00 98.2 65 20 143/69 95 Room Air 05/20/17 23:59 66 05/20/17 20:00 98.3 61 18 154/71 96 Room Air 05/20/17 19:26 63 05/20/17 16:00 97.8 62 18 151/70 96 Room Air 05/20/17 16:00 62 05/20/17 12:00 62 05/20/17 12:00 98.0 63 18 152/77 96 Room Air 05/20/17 08:58 65 150/72 Intake and Output 05/20/17 05/21/17 19:00 07:00 Intake Total 1555 ml 990 ml Output Total 1300 ml Balance 255 ml 990 ml IV Total 1555 ml 990 ml Output Urine Total 1300 ml # Voids 6 Laboratory Tests 05/21/17 03:45: White Blood Count 5.7, Red Blood Count 3.93L, Hemoglobin 11.9L, Hematocrit 34.6L , Mean Corpuscular Volume 88, Mean Corpuscular Hemoglobin 30.2, Mean Corpuscular Hemoglobin Concent 34.3, Red Cell Distribution Width 13.3, Platelet Count 192, Mean Platelet Volume 6.7, Neutrophils (%) (Auto) 71.6, Lymphocytes (% ) (Auto) 15.7L, Monocytes (%) (Auto) 7.8, Eosinophils (%) (Auto) 3.6H, Basophils (%) (Auto) 1.2, Sodium Level 138, Potassium Level 3.2L, Chloride Level 106, Carbon Dioxide Level 18L, Anion Gap 14, Blood Urea Nitrogen 8, Creatinine 0.6, Estimat Glomerular Filtration Rate , Glucose Level 108H, Calcium Level 7.7L, Total Bilirubin 1.3H, Direct Bilirubin 0.4H, Aspartate Amino Transf (AST/SGOT) 26, Alanine Aminotransferase (ALT/SGPT) 39, Alkaline Phosphatase 147H, Total Protein 6.0L, Albumin 2.4L, Globulin 3.6, Albumin/ Globulin Ratio 0.7L Height (Feet): 5 Height (Inches): 3.00 Weight (Pounds): 112 Objective WDWN NAD noted crepitus minimal and improved clear breath sounds bilaterally without rhonchi or wheeze [id number] without MRG NABS minimally tender no HSM- improved no CCE nonfocal alert skin noted SONI KO May 21, 2017 08:35
[2017-05-21] MEDS: Heparin 5000 units/ml inj SUBQ SCH ×2 (09:01→21:28)
[2017-05-21] MEDS ORDERED: Morphine Sulfate 4mg/ml Inj IVP PRN (11:00)
[2017-05-21 12:00] VITALS: BP 151/78
[2017-05-21 16:00] VITALS: BP 156/76
[2017-05-21] MEDS: Cefepime HCl 1 GM in NS 55 ML IVPB SCH (16:21)
--- NOTE | 2017-05-21 18:53 | General Surgery Progress Note ---
General Surgery-Progress Note Subjective Symptoms: improved, pain absent Additional Comments no complaints. comfortable. no n/v/f/c. afebrile, HD stable, labs okay. crepitus improving. Objective Last 24 Hour Vital Signs Date Time Temp Pulse Resp B/P (MAP) Pulse Ox O2 Delivery O2 Flow Rate FiO2 05/21/17 16:00 68 05/21/17 16:00 98.6 70 14 156/76 97 Room Air 05/21/17 12:00 98.2 72 20 151/78 98 Room Air 05/21/17 12:00 61 05/21/17 08:57 63 150/72 05/21/17 08:00 97.7 63 16 150/72 97 Room Air 05/21/17 08:00 59 05/21/17 04:00 98.4 61 20 149/75 95 Room Air 05/21/17 03:41 59 05/21/17 00:00 98.2 65 20 143/69 95 Room Air 05/20/17 23:59 66 05/20/17 20:00 98.3 61 18 154/71 96 Room Air 05/20/17 19:26 63 I&O Intake and Output 05/20/17 05/21/17 19:00 07:00 Intake Total 1555 ml 1090 ml Output Total 1300 ml Balance 255 ml 1090 ml IV Total 1555 ml 1090 ml Output Urine Total 1300 ml # Voids 6 Cardiovascular: RSR Respiratory: clear Abdomen: soft, flat, non-tender, present bowel sounds Extremities: no edema Laboratory Tests Test 05/21/17 03:45 White Blood Count 5.7 K/UL (4.8-10.8) Red Blood Count 3.93 M/UL (4.70-6.10) L Hemoglobin 11.9 G/DL (14.2-18.0) L Hematocrit 34.6 % (42.0-52.0) L Mean Corpuscular Volume 88 FL (80-99) Mean Corpuscular Hemoglobin 30.2 PG (27.0-31.0) Mean Corpuscular Hemoglobin Concent 34.3 G/DL (32.0-36.0) Red Cell Distribution Width 13.3 % (11.6-14.8) Platelet Count 192 K/UL (150-450) Mean Platelet Volume 6.7 FL (6.5-10.1) Neutrophils (%) (Auto) 71.6 % (45.0-75.0) Lymphocytes (%) (Auto) 15.7 % (20.0-45.0) L Monocytes (%) (Auto) 7.8 % (1.0-10.0) Eosinophils (%) (Auto) 3.6 % (0.0-3.0) H Basophils (%) (Auto) 1.2 % (0.0-2.0) Sodium Level 138 MMOL/L (136-145) Potassium Level 3.2 MMOL/L (3.5-5.1) L Chloride Level 106 MMOL/L (98-107) Carbon Dioxide Level 18 MMOL/L (21-32) L Anion Gap 14 mmol/L (5-15) Blood Urea Nitrogen 8 mg/dL (7-18) Creatinine 0.6 MG/DL (0.55-1.30) Estimat Glomerular Filtration Rate mL/min (>60) Glucose Level 108 MG/DL (74-106) H Calcium Level 7.7 MG/DL (8.5-10.1) L Total Bilirubin 1.3 MG/DL (0.2-1.0) H Direct Bilirubin 0.4 MG/DL (0.0-0.3) H Aspartate Amino Transf (AST/SGOT) 26 U/L (15-37) Alanine Aminotransferase (ALT/SGPT) 39 U/L (12-78) Alkaline Phosphatase 147 U/L (46-116) H Total Protein 6.0 G/DL (6.4-8.2) L Albumin 2.4 G/DL (3.4-5.0) L Globulin 3.6 g/dL Albumin/Globulin Ratio 0.7 (1.0-2.7) L Plan Problems: (1) Choledocholithiasis Assessment & Plan: 81M s/p uneventful ERCP for choledocholithiasis was noted to have crepitus post procedure. CT demonstrated retroperitoneal air and similar findings to clinical exam. No noted injury during procedure which was otherwise uneventful. Although many possible differential diagnosis most likely is small retroperitoneal perforation during procedure. No definitive site of injury could be seen on CT when I reviewed it. No significant esophageal injury could be noted on CT. start clears. will evaluate in AM and if continues to improve will advance diet will follow with recs. thank you for this consultation. Ggii Crowder May 21, 2017 18:53
--- NOTE | 2017-05-21 19:03 | General Progress Note ---
Assessment/Plan Assessment/Plan Assessment - choledocholithiasis - Jaundice - improved - s/p ERCP and stone extraction - resolving perforation Recommendations - follow labs and exam - clear liquids --> advance per surgery - IVF - Broad spectrum antibiotics Subjective Allergies: Coded Allergies: No Known Allergies (Unverified , 05/14/17) Subjective Above noted feels OK hungry - started on clears today no abd pain Objective Last 24 Hour Vital Signs Date Time Temp Pulse Resp B/P (MAP) Pulse Ox O2 Delivery O2 Flow Rate FiO2 05/21/17 16:00 68 05/21/17 16:00 98.6 70 14 156/76 97 Room Air 05/21/17 12:00 98.2 72 20 151/78 98 Room Air 05/21/17 12:00 61 05/21/17 08:57 63 150/72 05/21/17 08:00 97.7 63 16 150/72 97 Room Air 05/21/17 08:00 59 05/21/17 04:00 98.4 61 20 149/75 95 Room Air 05/21/17 03:41 59 05/21/17 00:00 98.2 65 20 143/69 95 Room Air 05/20/17 23:59 66 05/20/17 20:00 98.3 61 18 154/71 96 Room Air 05/20/17 19:26 63 Intake and Output 05/20/17 05/21/17 19:00 07:00 Intake Total 1555 ml 1090 ml Output Total 1300 ml Balance 255 ml 1090 ml IV Total 1555 ml 1090 ml Output Urine Total 1300 ml # Voids 6 Laboratory Tests 05/21/17 03:45: White Blood Count 5.7, Red Blood Count 3.93L, Hemoglobin 11.9L, Hematocrit 34.6L , Mean Corpuscular Volume 88, Mean Corpuscular Hemoglobin 30.2, Mean Corpuscular Hemoglobin Concent 34.3, Red Cell Distribution Width 13.3, Platelet Count 192, Mean Platelet Volume 6.7, Neutrophils (%) (Auto) 71.6, Lymphocytes (% ) (Auto) 15.7L, Monocytes (%) (Auto) 7.8, Eosinophils (%) (Auto) 3.6H, Basophils (%) (Auto) 1.2, Sodium Level 138, Potassium Level 3.2L, Chloride Level 106, Carbon Dioxide Level 18L, Anion Gap 14, Blood Urea Nitrogen 8, Creatinine 0.6, Estimat Glomerular Filtration Rate , Glucose Level 108H, Calcium Level 7.7L, Total Bilirubin 1.3H, Direct Bilirubin 0.4H, Aspartate Amino Transf (AST/SGOT) 26, Alanine Aminotransferase (ALT/SGPT) 39, Alkaline Phosphatase 147H, Total Protein 6.0L, Albumin 2.4L, Globulin 3.6, Albumin/ Globulin Ratio 0.7L Height (Feet): 5 Height (Inches): 3.00 Weight (Pounds): 112 Objective WDWN Man NCAT supple, minimal crepitus at base of neck CTA RRR Soft NT ND no edema non focal MIRANDA LAURENT May 21, 2017 19:03
[2017-05-21 20:00] VITALS: BP 119/73
[2017-05-22] VITALS: BP 157/70
[2017-05-22 04:00] VITALS: BP 155/80
[2017-05-22] MEDS: NovoLOG Insulin Flexpen SUBQ SCH ×4 (06:30→21:40)
[2017-05-22 08:00] VITALS: BP 160/77
[2017-05-22] MEDS: Heparin 5000 units/ml inj SUBQ SCH ×2 (08:57→21:39)
--- NOTE | 2017-05-22 11:10 | General Progress Note ---
Assessment/Plan Problem List: (1) Choledocholithiasis ICD Codes: K80.50 - Calculus of bile duct without cholangitis or cholecystitis without obstruction SNOMED: 821026836 (2) Abdominal pain ICD Codes: R10.9 - Unspecified abdominal pain SNOMED: 22711380 (3) Elevated LFTs ICD Codes: R79.89 - Other specified abnormal findings of blood chemistry SNOMED: 955639020, 688862936 Status: stable, progressing Assessment/Plan advance po per surgery replace k repeat labs abx Subjective ROS Limited/Unobtainable: No HEENT: Reports: no symptoms Cardiovascular: Reports: no symptoms Respiratory: Reports: no symptoms Gastrointestinal/Abdominal: Reports: no symptoms Genitourinary: Reports: no symptoms Neurologic/Psychiatric: Reports: no symptoms Endocrine: Reports: no symptoms Hematologic/Lymphatic: Reports: no symptoms Allergies: Coded Allergies: No Known Allergies (Unverified , 05/14/17) All Systems: reviewed and negative except above Subjective tolerating clear. no pain. no fever or chills. Objective Last 24 Hour Vital Signs Date Time Temp Pulse Resp B/P (MAP) Pulse Ox O2 Delivery O2 Flow Rate FiO2 05/22/17 08:54 160/77 05/22/17 08:54 66 160/77 05/22/17 08:00 98.2 66 19 160/77 97 Room Air 05/22/17 08:00 66 05/22/17 04:00 97.3 67 20 155/80 95 Room Air 05/22/17 03:47 67 05/22/17 00:00 98.2 65 20 157/70 98 Room Air 05/22/17 00:00 64 05/21/17 20:00 98.2 59 20 119/73 97 Room Air 05/21/17 20:00 61 05/21/17 16:00 68 05/21/17 16:00 98.6 70 14 156/76 97 Room Air 05/21/17 12:00 98.2 72 20 151/78 98 Room Air 05/21/17 12:00 61 Intake and Output 05/21/17 05/22/17 19:00 07:00 Intake Total 2291.667 ml 1250 ml Output Total 800 ml 1000 ml Balance 1491.667 ml 250 ml Intake Oral 1000 ml IV Total 1291.667 ml 1250 ml Output Urine Total 800 ml 1000 ml Height (Feet): 5 Height (Inches): 3.00 Weight (Pounds): 113 General Appearance: WD/WN, alert Neck: supple Cardiovascular: normal rate, regular rhythm Respiratory/Chest: chest wall non-tender, lungs clear, normal breath sounds Abdomen: normal bowel sounds, non tender, soft, no organomegaly Edema: no edema noted Arm (L), no edema noted Arm (R), no edema noted Leg (L), no edema noted Leg (R), no edema noted Pedal (L), no edema noted Pedal (R), no edema noted Generalized INES ARGUELLO May 22, 2017 11:10
--- NOTE | 2017-05-22 11:26 | General Surgery Progress Note ---
General Surgery-Progress Note Subjective Symptoms: improved Additional Comments doing well. tolerating clears. crepitus improved. passing flatus. no bm yet. Objective Last 24 Hour Vital Signs Date Time Temp Pulse Resp B/P (MAP) Pulse Ox O2 Delivery O2 Flow Rate FiO2 05/22/17 08:54 160/77 05/22/17 08:54 66 160/77 05/22/17 08:00 98.2 66 19 160/77 97 Room Air 05/22/17 08:00 66 05/22/17 04:00 97.3 67 20 155/80 95 Room Air 05/22/17 03:47 67 05/22/17 00:00 98.2 65 20 157/70 98 Room Air 05/22/17 00:00 64 05/21/17 20:00 98.2 59 20 119/73 97 Room Air 05/21/17 20:00 61 05/21/17 16:00 68 05/21/17 16:00 98.6 70 14 156/76 97 Room Air 05/21/17 12:00 98.2 72 20 151/78 98 Room Air 05/21/17 12:00 61 I&O Intake and Output 05/21/17 05/22/17 19:00 07:00 Intake Total 2291.667 ml 1250 ml Output Total 800 ml 1000 ml Balance 1491.667 ml 250 ml Intake Oral 1000 ml IV Total 1291.667 ml 1250 ml Output Urine Total 800 ml 1000 ml Drains: none Cardiovascular: RSR Respiratory: clear Abdomen: soft, flat, non-tender, present bowel sounds Extremities: no tenderness Plan Problems: (1) Choledocholithiasis Assessment & Plan: 81M s/p uneventful ERCP for choledocholithiasis was noted to have crepitus post procedure. CT demonstrated retroperitoneal air and similar findings to clinical exam. No noted injury during procedure which was otherwise uneventful. Although many possible differential diagnosis most likely is small retroperitoneal perforation during procedure. No definitive site of injury could be seen on CT when I reviewed it. No significant esophageal injury could be noted on CT. start clears. keep on clears for now. not ready to advance. will follow with recs. thank you for this consultation. Gigi Crowder May 22, 2017 11:26
--- NOTE | 2017-05-22 11:32 | General Progress Note ---
Assessment/Plan Problem List: (1) Choledocholithiasis ICD Codes: K80.50 - Calculus of bile duct without cholangitis or cholecystitis without obstruction SNOMED: 883196242 (2) Perforated viscus ICD Codes: R19.8 - Other specified symptoms and signs involving the digestive system and abdomen SNOMED: 06981574, 637097327 Assessment/Plan advance diet when ok with surg no on clears improving crepitus needs repeat ERCP in 12 weeks Subjective ROS Limited/Unobtainable: Yes Allergies: Coded Allergies: No Known Allergies (Unverified , 05/14/17) Subjective no abd pain Objective Last 24 Hour Vital Signs Date Time Temp Pulse Resp B/P (MAP) Pulse Ox O2 Delivery O2 Flow Rate FiO2 05/22/17 08:54 160/77 05/22/17 08:54 66 160/77 05/22/17 08:00 98.2 66 19 160/77 97 Room Air 05/22/17 08:00 66 05/22/17 04:00 97.3 67 20 155/80 95 Room Air 05/22/17 03:47 67 05/22/17 00:00 98.2 65 20 157/70 98 Room Air 05/22/17 00:00 64 05/21/17 20:00 98.2 59 20 119/73 97 Room Air 05/21/17 20:00 61 05/21/17 16:00 68 05/21/17 16:00 98.6 70 14 156/76 97 Room Air 05/21/17 12:00 98.2 72 20 151/78 98 Room Air 05/21/17 12:00 61 Intake and Output 05/21/17 05/22/17 19:00 07:00 Intake Total 2291.667 ml 1250 ml Output Total 800 ml 1000 ml Balance 1491.667 ml 250 ml Intake Oral 1000 ml IV Total 1291.667 ml 1250 ml Output Urine Total 800 ml 1000 ml Height (Feet): 5 Height (Inches): 3.00 Weight (Pounds): 113 General Appearance: alert EENT: normal ENT inspection Neck: supple Cardiovascular: normal rate Respiratory/Chest: decreased breath sounds Abdomen: normal bowel sounds, non tender, soft Extremities: non-tender REY STEEL May 22, 2017 11:32
[2017-05-22 12:00] VITALS: BP 162/68
[2017-05-22 16:00] VITALS: BP 146/70
[2017-05-22] MEDS: Cefepime HCl 1 GM in NS 55 ML IVPB SCH (16:01)
[2017-05-22] MEDS ORDERED: NS 275ml ONE (17:26)
[2017-05-22] MEDS ORDERED: Tubing IV Secondary IV ONE (17:26)
[2017-05-22 20:00] VITALS: BP 154/71
[2017-05-23] VITALS: BP 156/70
[2017-05-23 04:00] VITALS: BP 148/67
[2017-05-23 06:27] LABS: ALANINE AMINOTRANSFERASE 36 U/L (12-78); ALBUMIN 2.4 G/DL (3.4-5.0); ALBUMIN/GLOBULIN RATIO 0.7 (1.0-2.7); ALKALINE PHOSPHATASE 124 U/L (46-116); ANION GAP 5 mmol/L (5-15); ASPARTATE AMINO TRANSFERASE 37 U/L (15-37); BILIRUBIN,TOTAL 1.1 MG/DL (0.2-1.0); BLOOD UREA NITROGEN 4 mg/dL (7-18); CALCIUM 8.3 MG/DL (8.5-10.1); CARBON DIOXIDE 29 MMOL/L (21-32); CHLORIDE 106 MMOL/L (98-107); CREATININE 0.7 MG/DL (0.55-1.30); POTASSIUM 3.4 MMOL/L (3.5-5.1); SODIUM 140 MMOL/L (136-145)
[2017-05-23 06:29] LABS: BILIRUBIN,DIRECT 0.4 MG/DL (0.0-0.3)
[2017-05-23] MEDS: NovoLOG Insulin Flexpen SUBQ SCH ×4 (06:36→21:04)
[2017-05-23] MEDS: Heparin 5000 units/ml inj SUBQ SCH ×2 (08:43→21:04)
--- NOTE | 2017-05-23 08:48 | General Progress Note ---
Assessment/Plan Problem List: (1) Choledocholithiasis ICD Codes: K80.50 - Calculus of bile duct without cholangitis or cholecystitis without obstruction SNOMED: 370284335 (2) Perforated viscus ICD Codes: R19.8 - Other specified symptoms and signs involving the digestive system and abdomen SNOMED: 84372899, 605742004 Assessment/Plan advance diet when ok with surg start insure 3 cans per day improving crepitus needs repeat ERCP in 12 weeks Subjective ROS Limited/Unobtainable: Yes Allergies: Coded Allergies: No Known Allergies (Unverified , 05/14/17) Subjective no abd pain Objective Last 24 Hour Vital Signs Date Time Temp Pulse Resp B/P (MAP) Pulse Ox O2 Delivery O2 Flow Rate FiO2 05/23/17 08:43 52 148/67 05/23/17 04:00 99.0 52 20 148/67 95 Room Air 05/23/17 00:00 97.9 51 21 156/70 94 Room Air 05/22/17 20:00 97.3 50 18 154/71 97 Room Air 05/22/17 16:00 98.0 49 19 146/70 98 Room Air 05/22/17 16:00 56 05/22/17 13:46 162/68 05/22/17 12:00 51 05/22/17 12:00 97.7 58 18 162/68 97 Room Air 05/22/17 08:54 160/77 05/22/17 08:54 66 160/77 Intake and Output 05/22/17 05/23/17 19:00 07:00 Intake Total 2165 ml 1100 ml Output Total 1360 ml 1050 ml Balance 805 ml 50 ml Intake Oral 960 ml IV Total 1205 ml 1100 ml Output Urine Total 1360 ml 1050 ml # Voids 6 3 Laboratory Tests 05/23/17 03:55: Sodium Level 140, Potassium Level 3.4L, Chloride Level 106, Carbon Dioxide Level 29, Anion Gap 5, Blood Urea Nitrogen 4L, Creatinine 0.7, Estimat Glomerular Filtration Rate , Glucose Level 124H, Calcium Level 8.3L, Total Bilirubin 1.1H, Direct Bilirubin 0.4H, Aspartate Amino Transf (AST/SGOT) 37, Alanine Aminotransferase (ALT/SGPT) 36, Alkaline Phosphatase 124H, Total Protein 5.7L, Albumin 2.4L, Globulin 3.3, Albumin/Globulin Ratio 0.7L Height (Feet): 5 Height (Inches): 3.00 Weight (Pounds): 113 General Appearance: no apparent distress EENT: normal ENT inspection Neck: supple Cardiovascular: normal rate Respiratory/Chest: decreased breath sounds Abdomen: normal bowel sounds, non tender, soft Extremities: non-tender REY TSEEL May 23, 2017 08:48
[2017-05-23 08:56] VITALS: BP 145/65
--- NOTE | 2017-05-23 09:24 | General Progress Note ---
Assessment/Plan Problem List: (1) Choledocholithiasis ICD Codes: K80.50 - Calculus of bile duct without cholangitis or cholecystitis without obstruction SNOMED: 980258575 (2) Abdominal pain ICD Codes: R10.9 - Unspecified abdominal pain SNOMED: 01946725 (3) Elevated LFTs ICD Codes: R79.89 - Other specified abnormal findings of blood chemistry SNOMED: 130838280, 205796615 Assessment/Plan advance po per surgery replace k repeat labs abx Subjective ROS Limited/Unobtainable: No Constitutional: Reports: no symptoms HEENT: Reports: no symptoms Cardiovascular: Reports: no symptoms Respiratory: Reports: no symptoms Gastrointestinal/Abdominal: Reports: no symptoms Genitourinary: Reports: no symptoms Neurologic/Psychiatric: Reports: no symptoms Endocrine: Reports: no symptoms Hematologic/Lymphatic: Reports: no symptoms Allergies: Coded Allergies: No Known Allergies (Unverified , 05/14/17) All Systems: reviewed and negative except above Subjective tolerating clear. no pain. no fever or chills. GI noted Objective Last 24 Hour Vital Signs Date Time Temp Pulse Resp B/P (MAP) Pulse Ox O2 Delivery O2 Flow Rate FiO2 05/23/17 08:56 97.1 57 19 145/65 96 05/23/17 08:43 52 148/67 05/23/17 04:00 99.0 52 20 148/67 95 Room Air 05/23/17 00:00 97.9 51 21 156/70 94 Room Air 05/22/17 20:00 97.3 50 18 154/71 97 Room Air 05/22/17 16:00 98.0 49 19 146/70 98 Room Air 05/22/17 16:00 56 05/22/17 13:46 162/68 05/22/17 12:00 51 05/22/17 12:00 97.7 58 18 162/68 97 Room Air Intake and Output 05/22/17 05/23/17 19:00 07:00 Intake Total 2165 ml 1100 ml Output Total 1360 ml 1050 ml Balance 805 ml 50 ml Intake Oral 960 ml IV Total 1205 ml 1100 ml Output Urine Total 1360 ml 1050 ml # Voids 6 3 Laboratory Tests 05/23/17 03:55: Sodium Level 140, Potassium Level 3.4L, Chloride Level 106, Carbon Dioxide Level 29, Anion Gap 5, Blood Urea Nitrogen 4L, Creatinine 0.7, Estimat Glomerular Filtration Rate , Glucose Level 124H, Calcium Level 8.3L, Total Bilirubin 1.1H, Direct Bilirubin 0.4H, Aspartate Amino Transf (AST/SGOT) 37, Alanine Aminotransferase (ALT/SGPT) 36, Alkaline Phosphatase 124H, Total Protein 5.7L, Albumin 2.4L, Globulin 3.3, Albumin/Globulin Ratio 0.7L Height (Feet): 5 Height (Inches): 3.00 Weight (Pounds): 113 General Appearance: WD/WN, alert Neck: supple Cardiovascular: regular rhythm Respiratory/Chest: chest wall non-tender, lungs clear, normal breath sounds, no respiratory distress Abdomen: normal bowel sounds, non tender, soft, no organomegaly Edema: no edema noted Arm (L), no edema noted Arm (R), no edema noted Leg (L), no edema noted Leg (R), no edema noted Pedal (L), no edema noted Pedal (R), no edema noted Generalized INES ARGUELLO May 23, 2017 09:24
[2017-05-23] MEDS ORDERED: Tubing IV Secondary IV ONE (10:05)
[2017-05-23] MEDS ORDERED: Potassium Chloride 30 MEQ in Sodium Chloride 500ML 550 ML IVPB ONE (11:00)
[2017-05-23 12:00] VITALS: BP 143/65
--- NOTE | 2017-05-23 13:02 | General Surgery Progress Note ---
General Surgery-Progress Note Subjective Symptoms: improved, pain absent, tolerating diet, passing flatus Objective Last 24 Hour Vital Signs Date Time Temp Pulse Resp B/P (MAP) Pulse Ox O2 Delivery O2 Flow Rate FiO2 05/23/17 12:00 97.7 50 20 143/65 97 05/23/17 08:56 97.1 57 19 145/65 96 05/23/17 08:43 52 148/67 05/23/17 04:00 99.0 52 20 148/67 95 Room Air 05/23/17 00:00 97.9 51 21 156/70 94 Room Air 05/22/17 20:00 97.3 50 18 154/71 97 Room Air 05/22/17 16:00 98.0 49 19 146/70 98 Room Air 05/22/17 16:00 56 05/22/17 13:46 162/68 I&O Intake and Output 05/22/17 05/23/17 19:00 07:00 Intake Total 2165 ml 1100 ml Output Total 1360 ml 1050 ml Balance 805 ml 50 ml Intake Oral 960 ml IV Total 1205 ml 1100 ml Output Urine Total 1360 ml 1050 ml # Voids 6 3 Cardiovascular: RSR Respiratory: clear Abdomen: soft, flat, non-tender, present bowel sounds Extremities: no tenderness Laboratory Tests Test 05/23/17 03:55 Sodium Level 140 MMOL/L (136-145) Potassium Level 3.4 MMOL/L (3.5-5.1) L Chloride Level 106 MMOL/L (98-107) Carbon Dioxide Level 29 MMOL/L (21-32) Anion Gap 5 mmol/L (5-15) Blood Urea Nitrogen 4 mg/dL (7-18) L Creatinine 0.7 MG/DL (0.55-1.30) Estimat Glomerular Filtration Rate mL/min (>60) Glucose Level 124 MG/DL (74-106) H Calcium Level 8.3 MG/DL (8.5-10.1) L Total Bilirubin 1.1 MG/DL (0.2-1.0) H Direct Bilirubin 0.4 MG/DL (0.0-0.3) H Aspartate Amino Transf (AST/SGOT) 37 U/L (15-37) Alanine Aminotransferase (ALT/SGPT) 36 U/L (12-78) Alkaline Phosphatase 124 U/L (46-116) H Total Protein 5.7 G/DL (6.4-8.2) L Albumin 2.4 G/DL (3.4-5.0) L Globulin 3.3 g/dL Albumin/Globulin Ratio 0.7 (1.0-2.7) L Plan Problems: (1) Choledocholithiasis Assessment & Plan: 81M s/p uneventful ERCP for choledocholithiasis was noted to have crepitus post procedure. CT demonstrated retroperitoneal air and similar findings to clinical exam. No noted injury during procedure which was otherwise uneventful. Although many possible differential diagnosis most likely is small retroperitoneal perforation during procedure. No definitive site of injury could be seen on CT when I reviewed it. No significant esophageal injury could be noted on CT. crepitus improving. afebrile, HD stable, labs okay. Full liquids for today will follow with recs. thank you for this consultation. Gigi Crowder May 23, 2017 13:02
[2017-05-23 16:00] VITALS: BP 156/74
[2017-05-23] MEDS ORDERED: Cefepime HCl 1 GM in NS 55 ML IVPB SCH (16:00)
[2017-05-23 20:00] VITALS: BP 145/68
[2017-05-24 00:34] VITALS: BP 140/63
[2017-05-24 04:19] VITALS: BP 155/78
[2017-05-24] MEDS: NovoLOG Insulin Flexpen SUBQ SCH ×4 (06:10→20:29)
[2017-05-24 08:00] VITALS: BP 149/78
[2017-05-24] MEDS: Heparin 5000 units/ml inj SUBQ SCH ×2 (08:57→20:28)
--- NOTE | 2017-05-24 09:02 | General Progress Note ---
Assessment/Plan Problem List: (1) Choledocholithiasis ICD Codes: K80.50 - Calculus of bile duct without cholangitis or cholecystitis without obstruction SNOMED: 727174863 (2) Abdominal pain ICD Codes: R10.9 - Unspecified abdominal pain SNOMED: 82635852 (3) Elevated LFTs ICD Codes: R79.89 - Other specified abnormal findings of blood chemistry SNOMED: 061629658, 875964412 Status: stable Assessment/Plan advance po per surgery monitor labs serial abd exams Subjective ROS Limited/Unobtainable: No Constitutional: Reports: malaise, weakness HEENT: Reports: no symptoms Cardiovascular: Reports: no symptoms Respiratory: Reports: no symptoms Gastrointestinal/Abdominal: Reports: no symptoms Genitourinary: Reports: no symptoms Neurologic/Psychiatric: Reports: no symptoms Endocrine: Reports: no symptoms Hematologic/Lymphatic: Reports: no symptoms Allergies: Coded Allergies: No Known Allergies (Unverified , 05/14/17) All Systems: reviewed and negative except above Subjective tolerating clear. no pain. no fever or chills. surgery noted. +bowel movement Objective Last 24 Hour Vital Signs Date Time Temp Pulse Resp B/P (MAP) Pulse Ox O2 Delivery O2 Flow Rate FiO2 05/24/17 08:57 66 155/78 05/24/17 04:19 98.0 66 18 155/78 97 05/24/17 00:34 97.9 58 18 140/63 98 05/23/17 20:00 97.7 60 17 145/68 98 05/23/17 16:00 98.1 56 19 156/74 96 05/23/17 12:00 97.7 50 20 143/65 97 Intake and Output 05/23/17 05/24/17 19:00 07:00 Intake Total 1889.993 ml 550 ml Output Total 850 ml Balance 1889.993 ml -300 ml Intake Oral 420 ml IV Total 1469.993 ml 550 ml Output Urine Total 850 ml # Voids 5 3 Height (Feet): 5 Height (Inches): 3.00 Weight (Pounds): 106 INES ARGUELLO May 24, 2017 09:02
--- NOTE | 2017-05-24 10:42 | General Progress Note ---
Assessment/Plan Assessment/Plan Assessment - choledocholithiasis - Jaundice - improved - s/p ERCP and stone extraction - resolving perforation Recommendations - follow labs and exam - push po - OOB - IVF - Broad spectrum antibiotics - repeat ERCP with stent removal at later date Subjective Allergies: Coded Allergies: No Known Allergies (Unverified , 05/14/17) Subjective Above noted feels OK tolerating PO (+) BM Objective Last 24 Hour Vital Signs Date Time Temp Pulse Resp B/P (MAP) Pulse Ox O2 Delivery O2 Flow Rate FiO2 05/24/17 08:57 66 155/78 05/24/17 08:00 97.3 62 18 149/78 97 05/24/17 04:19 98.0 66 18 155/78 97 05/24/17 00:34 97.9 58 18 140/63 98 05/23/17 20:00 97.7 60 17 145/68 98 05/23/17 16:00 98.1 56 19 156/74 96 05/23/17 12:00 97.7 50 20 143/65 97 Intake and Output 05/23/17 05/24/17 19:00 07:00 Intake Total 1889.993 ml 650 ml Output Total 850 ml Balance 1889.993 ml -200 ml Intake Oral 420 ml IV Total 1469.993 ml 650 ml Output Urine Total 850 ml # Voids 5 3 Height (Feet): 5 Height (Inches): 3.00 Weight (Pounds): 106 Objective WDWN Man NCAT supple, minimal crepitus at base of neck CTA RRR Soft NT ND no edema non focal MIRANDA LAURENT May 24, 2017 10:42
--- NOTE | 2017-05-24 10:44 | Diagnostic Imaging Report ---
Indication: Cough Technique: One view of the chest Comparison: 05/20/2017 Findings: There is been considerable improvement in the amount of cutaneous emphysema, although bilateral subcutaneous emphysema persists. Previously demonstrated small apical pneumothorax is not evident currently. A lungs and pleural spaces remain clear. The heart size is normal. The aorta is tortuous and calcified. Retroperitoneal and intraperitoneal gas has also decreased. There is possibly a small left pleural effusion Impression: Improving subcutaneous emphysema and extra luminal abdominal gas, over 4 days Possible small left pleural effusion. No acute cardiopulmonary process otherwise
[2017-05-24 12:00] VITALS: BP 140/67
--- NOTE | 2017-05-24 15:31 | General Surgery Progress Note ---
General Surgery-Progress Note Subjective Symptoms: improved Additional Comments crepitus much improved. tolerating diet. Objective Last 24 Hour Vital Signs Date Time Temp Pulse Resp B/P (MAP) Pulse Ox O2 Delivery O2 Flow Rate FiO2 05/24/17 12:00 97.5 52 18 140/67 96 05/24/17 08:57 66 155/78 05/24/17 08:00 97.3 62 18 149/78 97 05/24/17 04:19 98.0 66 18 155/78 97 05/24/17 00:34 97.9 58 18 140/63 98 05/23/17 20:00 97.7 60 17 145/68 98 05/23/17 16:00 98.1 56 19 156/74 96 I&O Intake and Output 05/23/17 05/24/17 19:00 07:00 Intake Total 1889.993 ml 650 ml Output Total 850 ml Balance 1889.993 ml -200 ml Intake Oral 420 ml IV Total 1469.993 ml 650 ml Output Urine Total 850 ml # Voids 5 3 Drains: none Cardiovascular: RSR Respiratory: clear Abdomen: soft, flat, non-tender, present bowel sounds Extremities: no tenderness, no cyanosis Plan Problems: (1) Choledocholithiasis Assessment & Plan: 81M s/p uneventful ERCP for choledocholithiasis was noted to have crepitus post procedure. CT demonstrated retroperitoneal air and similar findings to clinical exam. No noted injury during procedure which was otherwise uneventful. Although many possible differential diagnosis most likely is small retroperitoneal perforation during procedure. No definitive site of injury could be seen on CT when I reviewed it. No significant esophageal injury could be noted on CT. crepitus improving. afebrile, HD stable, exam benign regular diet d/c planning. potential d/c tomorrow. will follow with recs. thank you for this consultation. Gigi Crowder May 24, 2017 15:31
[2017-05-24 15:52] VITALS: BP 150/72
[2017-05-24 20:00] VITALS: BP 165/72
[2017-05-24] MEDS: Augmentin 875mg Tab ORAL SCH (20:26)
[2017-05-25] VITALS: BP 149/71
[2017-05-25 04:00] VITALS: BP 156/66
[2017-05-25] MEDS: NovoLOG Insulin Flexpen SUBQ SCH ×2 (05:58→11:59)
[2017-05-25 08:00] VITALS: BP 145/67
[2017-05-25] MEDS: Heparin 5000 units/ml inj SUBQ SCH (09:00)
[2017-05-25] MEDS: Augmentin 875mg Tab ORAL SCH (09:06)
[2017-05-25 09:27] LABS: ALANINE AMINOTRANSFERASE 29 U/L (12-78); ALBUMIN 2.9 G/DL (3.4-5.0); ALBUMIN/GLOBULIN RATIO 0.7 (1.0-2.7); ALKALINE PHOSPHATASE 131 U/L (46-116); ANION GAP 4 mmol/L (5-15); ASPARTATE AMINO TRANSFERASE 30 U/L (15-37); BILIRUBIN,TOTAL 0.9 MG/DL (0.2-1.0); BLOOD UREA NITROGEN 5 mg/dL (7-18); CALCIUM 8.8 MG/DL (8.5-10.1); CARBON DIOXIDE 30 MMOL/L (21-32); CHLORIDE 105 MMOL/L (98-107); POTASSIUM 3.5 MMOL/L (3.5-5.1); SODIUM 139 MMOL/L (136-145)
[2017-05-25 12:00] VITALS: BP 164/68
[2017-05-25 12:09] VITALS: BP 164/68
--- NOTE | 2017-05-25 12:29 | General Surgery Progress Note ---
General Surgery-Progress Note Subjective Symptoms: improved Additional Comments no issues. doing great. tolerating oral diet. Objective Last 24 Hour Vital Signs Date Time Temp Pulse Resp B/P (MAP) Pulse Ox O2 Delivery O2 Flow Rate FiO2 05/25/17 12:09 164/68 05/25/17 12:00 97.7 52 19 164/68 95 05/25/17 09:06 61 145/67 05/25/17 08:00 97.2 61 18 145/67 98 05/25/17 04:00 98.1 50 18 156/66 96 05/25/17 00:00 98.1 51 18 149/71 96 05/24/17 20:00 98.1 58 18 165/72 96 05/24/17 15:52 97.9 60 20 150/72 95 Room Air I&O Intake and Output 05/24/17 05/25/17 19:00 07:00 Intake Total 1270 ml 50 ml Output Total 1010 ml 850 ml Balance 260 ml -800 ml Intake Oral 720 ml IV Total 550 ml 50 ml Output Urine Total 1010 ml 850 ml # Voids 2 1 # Bowel Movements 1 Cardiovascular: RSR Respiratory: clear Abdomen: soft, flat, non-tender, present bowel sounds Extremities: no edema, no tenderness Laboratory Tests Test 05/25/17 07:50 Sodium Level 139 MMOL/L (136-145) Potassium Level 3.5 MMOL/L (3.5-5.1) Chloride Level 105 MMOL/L (98-107) Carbon Dioxide Level 30 MMOL/L (21-32) Anion Gap 4 mmol/L (5-15) L Blood Urea Nitrogen 5 mg/dL (7-18) L Creatinine 1.0 MG/DL (0.55-1.30) Estimat Glomerular Filtration Rate mL/min (>60) Glucose Level 155 MG/DL (74-106) H Calcium Level 8.8 MG/DL (8.5-10.1) Total Bilirubin 0.9 MG/DL (0.2-1.0) Aspartate Amino Transf (AST/SGOT) 30 U/L (15-37) Alanine Aminotransferase (ALT/SGPT) 29 U/L (12-78) Alkaline Phosphatase 131 U/L (46-116) H Total Protein 6.8 G/DL (6.4-8.2) Albumin 2.9 G/DL (3.4-5.0) L Globulin 3.9 g/dL Albumin/Globulin Ratio 0.7 (1.0-2.7) L Plan Problems: (1) Choledocholithiasis Assessment & Plan: 81M s/p uneventful ERCP for choledocholithiasis was noted to have crepitus post procedure. CT demonstrated retroperitoneal air and similar findings to clinical exam. No noted injury during procedure which was otherwise uneventful. Although many possible differential diagnosis most likely is small retroperitoneal perforation during procedure. No definitive site of injury could be seen on CT when I reviewed it. No significant esophageal injury could be noted on CT. crepitus almost fully resolved. afebrile, HD stable, exam benign regular diet okay to d/c from surgical standpoint will follow with recs. thank you for this consultation. Gigi Crowder May 25, 2017 12:29
[2017-05-25] MEDS ORDERED: Tubing IV Secondary IV ONE (14:46)
--- NOTE | 2017-05-27 15:46 | Discharge Summary ---
Discharge Summary Hospital Course Date of Admission May 14, 2017 at 13:18 Date of Discharge May 25, 2017 at 14:47 Admitting Diagnosis abdominal pain, elevated LFT's HPI Fei Ibarra is a 81 year old male who was admitted on May 14, 2017 at 13:18 for Abdominal Pain,Elevated Liver Function Test Hospital Course [id number] Discharge Discharge Disposition Patient was discharged to Home with Home Health(06) Discharge Diagnoses: Demetrice Fernandez NP May 27, 2017 15:46
--- NOTE | 2017-05-28 00:32 | Discharge Summary 2 SIG ---
DATE OF ADMISSION: 05/14/2017 DATE OF DISCHARGE: 05/25/2017 CONSULTANTS: 1. Julia Solano M.D. 2. Gigi Crowder M.D. 3. Matthias Lopez M.D. BRIEF HOSPITAL COURSE: The patient is an 81-year-old male, who presented with abdominal pain that has been ongoing with accompanying nausea and vomiting. The patient has been unable to keep anything down. He was seen and evaluated at the emergency room. He underwent CT scan of the abdomen and pelvis showing significant amount of stones, but no clear obstruction or cholecystitis. He had evidence of bile duct stones as well as dilatation of the common bile duct. Blood work revealed total bilirubin of 2.4, direct bilirubin 1.4, AST 359, ALT 148, and alkaline phosphatase was 219. He was admitted for common bile duct obstruction and possible gallstone-related hepatitis, possible mild dehydration, and diabetes. He was placed on NPO and was given IV hydration, antiemetics, and pain control. He was started on Zosyn at ED. On 05/17/2017, he underwent endoscopic retrograde cholangiopancreatography with sphincterotomy, lithotripsy, balloon-assisted stone extraction, and stent placement by Dr. Lopez. The patient tolerated the procedure well, however, post procedure, it was felt that the patient had a crepitus in the neck area. CT scan showed retroperitoneal air. Surgical evaluation was done with Dr. Crowder. Examination was benign and the patient was monitored. He was transferred to intensive care unit. He was kept on NPO and nasogastric tube was inserted. Crepitus was improving and the patient was hemodynamically stable. On 05/21/2017, he was eventually started on clear liquid diet. Diet was slowly advanced as tolerated. He had a bowel movement on 05/24/2017. Diet was increased to regular diet. He was tolerating diet well, and LFTs were downtrending. He was eventually discharged home with home health to follow up in 12 weeks for repeat endoscopic retrograde cholangiopancreatography and stent removal. FINAL DIAGNOSES: 1. Abdominal pain with choledocholithiasis. 2. Elevated liver function tests. 3. Common bile duct obstruction. 4. Gallstone-related hepatitis. 5. Diabetes. 6. Possible mild dehydration. 7. Status post perforation after endoscopic retrograde cholangiopancreatography. 8. Subcutaneous air. 9. Small pneumothorax DISPOSITION: The patient was discharged home with home health. DISCHARGE MEDICATIONS: Continue with medication list. DISCHARGE INSTRUCTIONS: Follow up in 12 weeks for repeat ERCP with stent removal. During the patient's hospital hospitalization, he was given Flagyl and cefepime intravenous. Leukocytosis eventually resolved. Huan Mason M.D. I have been assigned to dictate discharge summary on this account and I was not involved in the patient's management. Demetrice Fernandez N.P. DR: AVI JOB#: [id number] CC: NARAYAN
--- NOTE | 2017-07-06 13:51 | Endoscopy Procedure Note ---
Endoscopy Procedure Note General Indication for Procedure: choledocholithiasis Procedures Performed: ERCP Operative Findings/Diagnosis: same Specimen: none Pt Tolerated Procedure Well: Yes Estimated Blood Loss: none Anesthesia Anesthesiologist: merritt Anesthesia: MAC Inserted Devices Implant(s) used?: No GI Core Measures 50 yrs or older w/o bx or poly: Not Applicable 10yrs. F/U not recommended: Not Applicable REY STEEL Jul 06, 2017 13:51
== END 2017-05-25 14:47 | disposition home health service (06) | DRG 445 ==
LOC: EDBD 11:21 → EMR 11:51 → 3E 13:18 → EDBEDREQ 13:56 → ICU 05-17 21:29 → 2W 05-19 23:28 → 4W 05-22 17:52
PROC: 0F798DZ Dilation of Common Bile Duct with Intraluminal Device, Via Natural or Artificial Opening Endoscopic (ICD-10-PCS; principal; 2017-05-17 11:46)
PROC: 0FC98ZZ Extirpation of Matter from Common Bile Duct, Via Natural or Artificial Opening Endoscopic (ICD-10-PCS; principal; 2017-05-17 11:46)
DX: K80.51 Calculus of bile duct without cholangitis or cholecystitis with obstruction (principal); Z68.1 Body mass index [BMI] 19.9 or less, adult; K75.89 Other specified inflammatory liver diseases; E11.9 Type 2 diabetes mellitus without complications; E86.0 Dehydration; J95.811 Postprocedural pneumothorax; K91.71 Accidental puncture and laceration of a digestive system organ or structure during a digestive system procedure; T81.82XA Emphysema (subcutaneous) resulting from a procedure, initial encounter; Y83.8 Other surgical procedures as the cause of abnormal reaction of the patient, or of later complication, without mention of misadventure at the time of the procedure; Y92.234 Operating room of hospital as the place of occurrence of the external cause
CPT/HCPCS: 36415; 71045; 71260; 74177; 74328; 76000; 80053; 81003; 82248; 82550; 82553; 82962; 83690; 83735; 84484; 85007; 85025; 85610; 93005; 94003; 94150; 99285; J1815; J2250; J2405; J8499

== ENCOUNTER 2017-06-24 13:48 | Outpatient (CLI) | payer MEDICARE ==
[~2017-06-24 13:48] MED LIST: AMLODIPINE BESYL5 MG ORAL; METFORMIN HCL1000 M1 ORAL; METOPROLOL TART25 MG ORAL
[2017-06-24 13:55] VITALS: BP 115/58
--- NOTE | 2017-06-24 15:40 | GI Progress Note ---
Assessment/Plan Problems: (1) S/P ERCP ICD Codes: Z98.890 - Other specified postprocedural states SNOMED: 958244479, 909791471 (2) Perforated viscus ICD Codes: R19.8 - Other specified symptoms and signs involving the digestive system and abdomen SNOMED: 10346807, 529129017 (3) Abdominal pain ICD Codes: R10.9 - Unspecified abdominal pain SNOMED: 67575050 (4) Elevated LFTs ICD Codes: R79.89 - Other specified abnormal findings of blood chemistry SNOMED: 607402931, 881451690 Status: stable Status Narrative Seen with Dr. Lopez. Assessment/Plan repeat ERCP scheduled 07/12/17. Subjective Gastrointestinal/Abdominal: Reports: no symptoms Objective T 98.9 BP 115/58 P 65 HT 5'3 WT 109 General Appearance: WD/WN, no apparent distress, alert, thin Cardiovascular: normal rate Respiratory/Chest: normal breath sounds, no respiratory distress Abdominal Exam: normal bowel sounds, non tender, soft Extremities: normal range of motion, non-tender Sarah De La Paz N.P. Jun 24, 2017 15:40
[2017-06-24] MEDS ORDERED: BP med (16:04)
--- NOTE | 2017-06-24 16:21 | GI Initial Consult Note ---
History of Present Illness General Date patient seen: Jun 24, 2017 Time patient seen: 16:14 Referring physician: BENIGNO Reason for Consultation: ERCP Present Illness HPI 81 year old male recent admission to [facility]. On 05/17/2017, he underwent endoscopic retrograde cholangiopancreatography with sphincterotomy, lithotripsy, balloon-assisted stone extraction, and stent placement by Dr. Lopez. The patient tolerated the procedure well, however, post procedure, it was felt that the patient had a crepitus in the neck area. CT scan showed retroperitoneal air and consulted by surgery. He was tolerating diet well, and LFTs were downtrending. He was eventually discharged home with home health to follow up in 12 weeks for repeat endoscopic retrograde cholangiopancreatography and stent removal. He presents today in clinic for follow up to schedule ERCP. No general complaints note by the patient at this time. All labs/procedure notes reviewed. Hx DIAGNOSES: 1. Abdominal pain with choledocholithiasis. 2. Elevated liver function tests. 3. Common bile duct obstruction. 4. Gallstone-related hepatitis. 5. Diabetes. 6. Possible mild dehydration. 7. Status post perforation after endoscopic retrograde cholangiopancreatography. 8. Subcutaneous air. 9. Small pneumothorax Home Meds Reported Medications [BP med ] No Conflict Check 06/24/17 Metoprolol Tartrate* (METOPROLOL TARTRATE*) 25 Mg Tablet, 25 MG ORAL EVERY 12 HOURS, TAB 05/19/17 Amlodipine Besylate* (AMLODIPINE BESYLATE*) 5 Mg Tablet, 10 MG ORAL DAILY, TAB 05/19/17 Metformin Hcl* (METFORMIN HCL*) 1,000 Mg Tablet, 1000 MG ORAL BID, TAB 05/14/17 Med list reviewed/reconciled: Yes Allergies: Coded Allergies: No Known Allergies (Unverified , 05/14/17) Patient History Limited by: language barrier History Provided By: Patient, Medical Record Social History: Denies: smoking, alcohol use, drug use, other Review of Systems All Other Systems: negative except mentioned in HPI Physical Exam Vital Signs Date Time Temp Pulse Resp B/P (MAP) Pulse Ox O2 Delivery O2 Flow Rate FiO2 06/24/17 13:55 98.9 65 16 115/58 98 98.9 Sp02 EP Interpretation: reviewed, normal Labs T 98.9 BP 115/58 P 65 HT 5'3 WT 109 General Appearance: well appearing, no apparent distress, alert, thin Head: normocephalic EENT: PERRL/EOMI, normal ENT inspection Neck: supple Respiratory: normal breath sounds, no respiratory distress Cardiovascular: normal rate Gastrointestinal: normal inspection, non tender, soft, normal bowel sounds, non -distended Rectal: deferred Genitourinary: deferred Musculoskeletal: normal inspection, back normal Neurologic: normal inspection, alert, oriented x3, responsive Psychiatric: normal inspection, judgement/insight normal, memory normal Skin: normal inspection, normal color, no rash, warm/dry, palpation normal, well hydrated Lymphatic: normal inspection, no adenopathy GI: Plan Problems: (1) Encounter for removal of pancreatic stent (2) S/P ERCP (3) Elevated LFTs Plan repeat ERCP scheduled 07/12/17. - NPO @ [place] day prior procedure explained. Seen with Dr. Lopez. Thank you for this patient referral. Sarah De La Paz N.P. Jun 24, 2017 16:21
== END 2017-06-24 14:20 | disposition home or self-care (01) ==
LOC: PAN 13:48
DX: R10.9 Unspecified abdominal pain (principal); R19.8 Other specified symptoms and signs involving the digestive system and abdomen; Z98.890 Other specified postprocedural states; R79.89 Other specified abnormal findings of blood chemistry; E11.9 Type 2 diabetes mellitus without complications; K75.9 Inflammatory liver disease, unspecified; Z87.442 Personal history of urinary calculi; Z79.84 Long term (current) use of oral hypoglycemic drugs
CPT/HCPCS: 99212

== ENCOUNTER 2017-07-12 08:05 | Day surgery (SDC) | payer MEDICARE ==
[~2017-07-12] VITALS: Ht 160 cm; Wt 49.9 kg
[2017-07-12] VITALS (8 sets, daily range): BP systolic 90–140; BP diastolic 62–77
[~2017-07-12 08:05] MED LIST changes: +BP med
--- NOTE | 2017-07-12 09:24 | Pre-Procedure Note/Attestation ---
Pre-Procedure Note/Attestation Complete Prior to Procedure Planned Procedure: not applicable Procedure Narrative: ercp Indications for Procedure Pre-Operative Diagnosis: choledocholithiasis Attestation I attest that I discussed the nature of the procedure; its benefits; risks and complications; and alternatives (and the risks and benefits of such alternatives ), prior to the procedure, with the patient (or the patient's legal cordage sales representative). I attest that, if there was a reasonable possibility of needing a blood transfusion, the patient (or the patient's legal cordage sales representative) was given the [facility] standardized written summary, pursuant to the Kendall Tej Blood Safety Act ([place] Health and Safety Code # 1645, as amended). I attest that I re-evaluated the patient just prior to the surgery and that there has been no change in the patient's H&P, except as documented below: REY STEEL Jul 12, 2017 09:24
--- NOTE | 2017-07-12 09:25 | Short Stay Surgery H&P ---
History of Present Illness History of Present Illness Chief Complaint see recent office consult note HPI Fei Ibarra is a 81 year old male who was admitted on for Weakness Patient History Allergies: Coded Allergies: No Known Allergies (Unverified , 07/12/17) Medication History Scheduled Amlodipine Besylate* (Amlodipine Besylate*), 10 MG ORAL DAILY, (Reported) Metformin Hcl* (Metformin Hcl*), 1,000 MG ORAL BID, (Reported) Metoprolol Tartrate* (Metoprolol Tartrate*), 25 MG ORAL EVERY 12 HOURS, ( Reported) Miscellaneous Medications [BP med ], (Reported) Physical Exam Vital Signs Last Vital Signs Date Time Temp Pulse Resp B/P (MAP) Pulse Ox O2 Delivery O2 Flow Rate FiO2 07/12/17 08:57 98.4 70 18 140/77 98 Room Air 98.4 Plan Attestation Are the patient's medical conditions optimized for surgery? REY STEEL Jul 12, 2017 09:25
[2017-07-12] MEDS ORDERED: ASPIRIN325 MG ORAL (09:26)
[2017-07-12] MEDS ORDERED: ZOCOR20 M1 ORAL (09:26)
[2017-07-12] MEDS ORDERED: Iothalamate Meglumine 60% 30ML INJ ONE (09:37)
[2017-07-12 09:44] LABS: BASOPHILS % (AUTO) 1.2 % (0.0-2.0); EOSINOPHILS % (AUTO) 1.7 % (0.0-3.0); HEMATOCRIT 37.2 % (42.0-52.0); HEMOGLOBIN 12.3 G/DL (14.2-18.0); LYMPHOCYTES % (AUTO) 31.3 % (20.0-45.0); MEAN CORPUSCULAR VOLUME 89 FL (80-99); NEUTROPHILS % (AUTO) 57.8 % (45.0-75.0); PLATELET COUNT 134 K/UL (150-450); RED BLOOD COUNT 4.16 M/UL (4.70-6.10); RED CELL DISTRIBUTION WIDTH 13.1 % (11.6-14.8); WHITE BLOOD COUNT 5.7 K/UL (4.8-10.8)
--- NOTE | 2017-07-12 09:46 | Anethesia Preoperative Eval ---
Anesthesia Pre-op PMH/ROS General Date of Evaluation: Jul 12, 2017 Time of Evaluation: 09:28 Anesthesiologist: Kate ASA Score: ASA 3 Mallampati Score Class I : Soft palate, uvula, fauces, pillars visible Class II: Soft palate, uvula, fauces visible Class III: Soft palate, base of uvula visible Class IV: Only hard plate visible Mallampati Classification: Class II Surgeon: Jessica Diagnosis: Abd Pain Surgical Procedure: ERCP Anesthesia History: none Family History: no anesthesia problems Allergies: Coded Allergies: No Known Allergies (Unverified , 07/12/17) Medications: see eMAR Past Medical History Cardiovascular: Reports: HTN, CAD, other - HL Gastrointestinal/Genitourinary: Reports: GERD Endocrine: Reports: DM HEENT: Reports: [place] (L), [place] (R) PSxH Narrative: Cholecystectomy, Prior ERCP Anesthesia Pre-op Phys. Exam Physician Exam Last Vital Signs Date Time Temp Pulse Resp B/P (MAP) Pulse Ox O2 Delivery O2 Flow Rate FiO2 07/12/17 08:57 98.4 70 18 140/77 98 Room Air 98.4 Constitutional: NAD Neurologic: CN 2-12 intact Cardiovascular: RRR Respiratory: CTA Gastrointestinal: S/NT/ND Airway Exam Mallampati Score: Class II MO: limited ROM: limited Anesthesia Pre-op A/P Risk Assessment & Plan Assessment: ASA 3 Plan: GA Status Change Before Surgery: Jose Portillo MD Jul 12, 2017 09:46
[2017-07-12 09:55] LABS: ALANINE AMINOTRANSFERASE 13 U/L (12-78); ALBUMIN 4.1 G/DL (3.4-5.0); ALBUMIN/GLOBULIN RATIO 1.1 (1.0-2.7); ALKALINE PHOSPHATASE 74 U/L (46-116); AMYLASE 85 U/L (25-115); ANION GAP 8 mmol/L (5-15); ASPARTATE AMINO TRANSFERASE 15 U/L (15-37); BILIRUBIN,TOTAL 1.2 MG/DL (0.2-1.0); BLOOD UREA NITROGEN 19 mg/dL (7-18); CALCIUM 9.4 MG/DL (8.5-10.1); CARBON DIOXIDE 29 MMOL/L (21-32); CHLORIDE 102 MMOL/L (98-107); CREATININE 0.9 MG/DL (0.55-1.30); POTASSIUM 3.9 MMOL/L (3.5-5.1); SODIUM 139 MMOL/L (136-145)
[2017-07-12 10:04] LABS: BILIRUBIN,DIRECT 0.4 MG/DL (0.0-0.3)
--- NOTE | 2017-07-12 10:20 | Immediate Post-Op Evaluation ---
Immediate Post-Op Evalulation Immediate Post-Op Evalulation Procedure: ERCP Date of Evaluation: Jul 12, 2017 Time of Evaluation: 10:53 IV Fluids: 300 LR Blood Products: 0 Estimated Blood Loss: 10 Urinary Output: 0 Blood Pressure Systolic: 101 Blood Pressure Diastolic: 64 Pulse Rate: 72 Respiratory Rate: 16 O2 Sat by Pulse Oximetry: 100 Temperature (Fahrenheit): 98.2 Pain Score (1-10): 2 Nausea: No Vomiting: No Complications 0 Patient Status: awake, reacts, patent, none Hydration Status: adequate Jose Love MD Jul 12, 2017 10:20
--- NOTE | 2017-07-12 10:26 | 48 Hour Post Anesthesia Eval ---
Post Anesthesia Evaluation Procedure: ERCP Date of Evaluation: Jul 12, 2017 Time of Evaluation: 13:06 Blood Pressure Systolic: 167 0: 87 Pulse Rate: 82 Respiratory Rate: 18 Temperature (Fahrenheit): 98.2 O2 Sat by Pulse Oximetry: 99 Airway: patent Nausea: No Vomiting: No Pain Intensity: 0 Hydration Status: adequate Cardiopulmonary Status: Stable Mental Status/LOC: patient returned to baseline Follow-up Care/Observations: 0 Post-Anesthesia Complications: 0 Jose Love MD Jul 12, 2017 10:26
--- NOTE | 2017-07-12 10:29 | Endoscopy Procedure Note ---
Endoscopy Procedure Note General Indication for Procedure: choledocholithiasis Procedures Performed: ERCP Operative Findings/Diagnosis: same Specimen: none Pt Tolerated Procedure Well: Yes Estimated Blood Loss: none Anesthesia Anesthesiologist: doron Anesthesia: MAC Inserted Devices Implant(s) used?: No GI Core Measures 50 yrs or older w/o bx or poly: Not Applicable 10yrs. F/U not recommended: Not Applicable REY STEEL Jul 12, 2017 10:29
--- NOTE | 2017-07-12 14:33 | Diagnostic Imaging Report ---
Indication: Abdominal pain. ERCP. Findings: Fluoroscopically captured images of the right upper quadrant of the abdomen demonstrate an endoscope with cannulation of the common bile duct and injection of contrast material. Biliary ducts are markedly dilated. Extraction balloon noted. Cholecystectomy noted. Pancreatic duct not seen. Impression: ERCP as above
--- NOTE | 2017-07-12 18:00 | Procedure Note ---
DATE OF PROCEDURE: 07/12/2017 SURGEON: Matthias Lopez M.D. PROCEDURE: ERCP with stent removal and stone removal. ANESTHESIA: Jose Love M.D. INSTRUMENT: Olympus adult flexible ERCP scope. INDICATION: Choledocholithiasis. The procedure, risks, benefits, and possible consequences, including hemorrhage, aspiration, perforation and infection, and alternative treatments, were explained to the patient/legal guardian by Dr. Matthias Lopez and the patient/legal guardian understood and accepted these risks. DESCRIPTION OF PROCEDURE: After informed consent was obtained and the patient was adequately sedated, ERCP scope was advanced from mouth into the second portion of the duodenum. Using a snare, stent was successfully removed from the common bile duct. Then, the common bile duct was cannulated with a cannula. Wire was placed. Initial, cholangiogram showed dilated common bile duct to about 15 mm with multiple stones in the common bile duct. Then, over a guidewire, we introduced a 15 mm balloon. We swept the duct numerous times. Total of 6 stones were removed from this common bile duct. Post stone removal, balloon occlusion cholangiogram showed no filling defect in the common bile duct. There was no leakage from the common bile duct. There was no signs or symptoms of perforation at this time. The bile flow from common bile duct into the duodenum was adequate. So, no further stenting was placed. The patient tolerated the procedure very well without any complications. SUMMARY OF FINDINGS: Status post ERCP, stent and stone removal. RECOMMENDATIONS: The patient to be observed in the recovery. If asymptomatic and if no pain, we will start liquid and advance as tolerated. The patient to follow as an outpatient. I want to thank, Dr. Solano, for this kind referral. Matthias Lopez M.D. DR: JAN JOB#: [id number] CC: Julai Solano M.D.; Fax#: [phone]
== END 2017-07-12 13:00 | disposition home or self-care (01) ==
LOC: RAD 08:05 → SUR 08:05 → RAD 13:00
DX: K80.50 Calculus of bile duct without cholangitis or cholecystitis without obstruction (principal); Z79.84 Long term (current) use of oral hypoglycemic drugs; I11.9 Hypertensive heart disease without heart failure; E11.9 Type 2 diabetes mellitus without complications; K21.9 Gastro-esophageal reflux disease without esophagitis; Z90.49 Acquired absence of other specified parts of digestive tract
CPT/HCPCS: 36415; 74328; 76000; 80053; 82150; 82248; 82962; 83690; 85025; 93005; 94003; 94150

== ENCOUNTER 2017-07-27 09:42 | Outpatient (CLI) | payer MEDICARE ==
[~2017-07-27 09:42] MED LIST changes: +ASPIRIN325 MG ORAL; +ZOCOR20 M1 ORAL
[2017-07-27 11:04] VITALS: BP 139/63
--- NOTE | 2017-07-28 09:50 | GI Progress Note ---
Assessment/Plan Problems: (1) Encounter for removal of pancreatic stent ICD Codes: Z46.89 - Encounter for fitting and adjustment of other specified devices SNOMED: 712374745 (2) Elevated LFTs ICD Codes: R79.89 - Other specified abnormal findings of blood chemistry SNOMED: 022513030, 452651718 (3) S/P ERCP ICD Codes: Z98.890 - Other specified postprocedural states SNOMED: 831514302, [id number] Status: stable Status Narrative Seen with Dr. Lopez. Assessment/Plan ERCP reviewed with patient >> DATE OF PROCEDURE: 07/12/2017 PROCEDURE: ERCP with stent removal and stone removal. SUMMARY OF FINDINGS: Status post ERCP, stent and stone removal. RECOMMENDATIONS: RTC prn Subjective Gastrointestinal/Abdominal: Reports: no symptoms Objective Last 24 Hour Vital Signs Date Time Temp Pulse Resp B/P (MAP) Pulse Ox O2 Delivery O2 Flow Rate FiO2 07/27/17 11:04 97.6 58 16 139/63 98 97.6 General Appearance: WD/WN, no apparent distress, alert, thin Cardiovascular: normal rate Respiratory/Chest: normal breath sounds, no respiratory distress Abdominal Exam: normal bowel sounds, non tender, soft Extremities: normal range of motion, non-tender Sarah De La Paz N.P. Jul 28, 2017 09:50
== END 2017-07-27 10:15 | disposition home or self-care (01) ==
LOC: PAN 09:42
DX: Z46.89 Encounter for fitting and adjustment of other specified devices (principal); R79.89 Other specified abnormal findings of blood chemistry; Z98.890 Other specified postprocedural states
CPT/HCPCS: 99212